=== PATIENT | female | born 1945 | race Caucasian/White ===

== ENCOUNTER 2016-12-15 17:12 | Inpatient (IN) | payer MEDICARE, MEDICAID ==
[2016-12-15 17:54] LABS: Hematocrit 30.8 % (37.0-47.0); Hemoglobin 9.8 gm/dL (12.5-16.0); Mean Cell Volume 92.5 fl (78-100); Mean Corpuscular Hemoglobin 29.4 pg (27-31); Mean Corpuscular Hgb Conc 31.8 g/dl (32-36); Mean Platelet Volume 8.5 fl (6.0-9.5); Platelet Count 289 K/mm3 (150-450); Red Blood Count 3.33 M/mm3 (4.2-5.4); Red Cell Distribution Width 13.5 % (11.5-14.0); White Blood Count 11.2 K/mm3 (4.0-10.5)
[2016-12-15 18:01] LABS: Total Cells Counted 100
--- NOTE | 2016-12-15 18:04 | ERNOTE ---
Dyspnea - General Presenting Symptoms: shortness of breath Time Seen by Provider: 12/15/16 17:58 Source: patient Exam Limitations: no limitations - Immun/Allergies/Home Medications Immunizations: IMMUNIZATION HX Immunizations Up to Date Yes History of Influenza Vaccine Yes Hx Pneumococcal Vaccination Yes Allergies/Adverse Reactions: Allergies telithromycin [From KETEK] Allergy (Mild, Verified 07/22/16 21:13) unknown amlodipine besylate [From Norvasc] Adverse Reaction (Mild, Verified 07/22/16 21: 13) does not work azithromycin [From Zithromax] Adverse Reaction (Mild, Verified 07/22/16 21:13) gastritis cephalexin Adverse Reaction (Mild, Verified 07/22/16 21:13) Diarrhea olopatadine HCl [From Patanase] Adverse Reaction (Mild, Verified 07/22/16 21:13) dry nose paroxetine HCl [From Paxil] Adverse Reaction (Mild, Verified 07/22/16 21:13) GI upset, diarrhea potassium clavulanate [From Augmentin] Adverse Reaction (Mild, Verified 21:13) Nausea tramadol Adverse Reaction (Mild, Verified 07/22/16 21:13) Nausea Home Medications: HOME MEDICATIONS ALPRAZolam [Xanax] 0.75 mg PO HS 12/28/14 [Last Taken 06/30/16] Multivitamin [Multi-Vitamin Daily] 1 each PO DAILY 12/28/14 [Last Taken Unknown] Levothyroxine Sodium [Synthroid] 50 mcg PO DAILY 04/14/15 [Last Taken Unknown] Losartan Potassium [Cozaar] 25 mg PO DAILY 06/19/16 [Last Taken Unknown] Albuterol Sulfate [Ventolin HFA] 1 puff IH PRN PRN 07/01/16 [Last Taken Unknown] Calcium Carbonate/Vitamin D3 [Calcium 500 + Vit D3 400 Tab] 1 tab PO DAILY 07/01 [Last Taken 06/30/16] Albuterol Sulfate/Ipratropium [Duoneb 2.5-0.5MG/3ML Soln] 3 ml IH Q4H #1 nebu [Last Taken Unknown] Budesonide/Formoterol Fumarate [Symbicort 160-4.5 Mcg Inhaler] 2 puff IH BID [Last Taken Unknown] Naproxen Sodium [Naproxen Sodium Cr] 500 mg PO BID 12/15/16 [Last Taken Unknown] - History of Present Illness Narrative: Patient has a history of COPD, is being followed by Dr Hamilton and has been on O2 for about three years. Over the last three days she has been more short of breath, slight cough, productive with yellow/brown sputum. She had an outpatient order for a CXR by Dr Hamilton but came to the ER afterwards as she was not feeling well. Date (Duration): 12/12/16 Severity: moderate Treatment KAIAKO KOHANGA REO: albuterol Initiating event: Reports: upper resp illness. Denies: out of meds, exposure to smoke Frequency of episodes: Reports: occassional episodes Modifying Factors - (Improves): Reports: rest Modifying Factors (Worsens): Reports: activity Associated Symptoms-Dyspnea: Reports: cough, lightheadedness. Denies: fever/ chills, sweating, chest pain/discomfort Prior Treatment: Reports: previous episodes. Denies: recently seen, currently on antibiotics Review of Systems - Review of Systems Constitutional: Absent: fever, chills ENT: Absent: nose congestion, sore throat Respiratory: Present: See HPI, shortness of breath, cough Cardiology: Absent: chest pain Gastrointestinal/Abdominal: Absent: nausea, vomiting, abdominal pain Genitourinary: Present: no symptoms reported Skin: Absent: rash Neurological: Absent: headache - Patient's Past Medical History Patient History - Medical: Anxiety, Depression, Hypothyroidism, Other Patient History - Cardiac/Respiratory: COPD, Pneumonia Patient History - Cancer: No Hx of Cancer Patient History - Surgical Procedures: Hysterectomy, T & A Patient History - Other: None LMP (females 10-50): Menopausal - Family History Mother Family History - Medical: , No pertinent hx Family History - Cardiac/Respiratory: CHF Father Family History - Medical: , No pertinent hx Family History - Cardiac/Respiratory: No pertinent hx - Social History Living Situations: home Abuse History: No History of abuse Psych History: Hx of Anxiety, Hx of Depression Smoking Status: Former smoker Have you smoked in the past 12 months: No Alcohol Use: none Drug Use: none - Immunizations Immunizations Up to Date: Yes Hx Pneumococcal Vaccination: Yes History of Influenza Vaccine: Yes Physical Exam - Physical Exam General Appearance: Present: wd/wn, alert, no apparent distress Eye Exam: Normal inspection: bilateral, PERRL: bilateral Ears, Nose, Throat: Present: normal pharynx Respiratory: Present: no accessory muscle use, decreased breath sounds, wheezing - few Cardiovascular/Chest: Present: no murmur, tachycardia - slightly Gastrointestinal/Abdominal: Present: nontender, nondistended, soft Extremity Exam: Present: no edema Neurological Exam: Present: alert, oriented, normal mood/affect Skin Exam: Present: normal color, warm/dry ED Progress - Results and Orders Patient's Lab Results:: I have reviewed the patient's lab results. - Vital Signs Patient's Vital Signs:: I have reviewed the patient's vital signs. Vital Signs: Vital Signs 12/15/16 17:25 Temperature 35.7 C L Pulse Rate 110 H Respiratory 20 Rate Blood Pressure 155/91 O2 Sat by Pulse 95 Oximetry - X-Ray X-Ray #1 X-Ray: chest - left sided infiltrate ( out patient CXR done prior to ER visit) Interpretation: Reviewed by me - Progress/Reassessment Chief Complaint: Dyspnea Progress Note-Subjective: 12/15/16 18:59 requesting neb treatment, does not want high dose steroids 12/15/16 19:00 discussed with harsh Whitehead to admit and give levaquin and maxipime ( pneumonia protocol, increased pseudomonas risk) analyser down, [place] and differential not available at that time Departure Clinical Impression: Pneumonia Qualifiers: Pneumonia type: due to unspecified organism Laterality: left Lung location: upper lobe of lung Qualified Code(s): J18.1 - Lobar pneumonia, unspecified organism COPD (chronic obstructive pulmonary disease) Qualifiers: COPD type: unspecified COPD Qualified Code(s): J44.9 - Chronic obstructive pulmonary disease, unspecified - Departure Disposition: [facility] Condition: Fair
[2016-12-15 18:22] LABS: Anion Gap 12.9 mmol/L (6.8-13.8); BUN/Creatinine Ratio 27.4 (9.0-21.6); Calcium * 8.9 mg/dL (7.9-10.9); Carbon Dioxide 29.7 mmol/L (24-32.6); Potassium 4.6 mmol/L (3.4-4.6); Total Protein 7.8 gm/dL (6.2-8.2)
[2016-12-15 18:23] LABS: Bilirubin, Total 0.4 mg/dL (0.0-1.1); Ca. Corrected For Albumin 9.4 mg/dL (8.4-10.2)
[2016-12-15] MEDS ORDERED: predniSONE 20 MG TABLET PO ONE (18:54)
[2016-12-15] MEDS ORDERED: ALBUTEROL SULFATE 2.5 MG/0.5 ML VIAL.NEB IH ONE ×2 (18:54→19:19)
[2016-12-15] MEDS ORDERED: LEVOFLOXACIN/D5W 500 MG/100 ML BAG IV SCH (19:00)
[2016-12-15 19:12] LABS: Eosinophil 3 % (0-3); Lymphocyte 6 % (20-51); Monocyte 9 % (0-9); Neutrophil 82 % (42-75); Neutrophil # 9.2 K/mm3 (1.3-6.0)
[2016-12-15 19:13] LABS: Hypochromia 1+
[2016-12-15 19:15] LABS: Platelet Estimate Normal (NORMAL)
[2016-12-15] MEDS ORDERED: CEFEPIME HCL 1 GM in DEXTROSE 5 % IN WATER 100 ML IV STA ×2 (19:19)
[2016-12-15] MEDS ORDERED: LEVOFLOXACIN/D5W 750 MG in Premix Bag 1 BAG IV STA (19:19)
[2016-12-15] MEDS ORDERED: predniSONE 20 MG TABLET ONE (19:19)
[2016-12-15] MEDS ORDERED: ALBUTEROL SULFATE/IPRATROPIUM 3 ML NEBU IH SCH (21:15)
--- NOTE | 2016-12-15 21:49 | HP ---
Chief Complaint - Chief Complaint Date of Service: 12/15/16 Time of Service: 21:24 Chief Complaint: Shortness of breath, cough History of Present Illness: 71 Years old female adm to the hospital with reports of persistent shortness of breath and non productive cough. PMH significant for COPD 3L nasal cannula, hypothyroidism and pneumonia. pt stated today she called her extrusion engineer and told him she was having increased Shortness of breath x4 days and cough up yellow-brown sputum. She was instructed to have out-pt CXR: Left upper lobe Pneumonia and was seen and pt was sent to the hospital. She denies fever, chills , chest pain, palpitation, but report sinus pressure, pursed lip breathing and wasn't able to ambulated without significant shortness of breath and mild headache. In ER WBC 11.2, she was initiated on IV antibiotic, lactic acid negative. She will be adm and treated for pneumonia. Anticipate 1-3 nights stay. - Patient's Past Medical History Patient History - Medical: Anxiety, Depression, Hypothyroidism, Other Patient History - Cardiac/Respiratory: COPD, Pneumonia Patient History - Cancer: No Hx of Cancer Patient History - Surgical Procedures: Hysterectomy, T & A Patient History - Other: None LMP (females 10-50): Menopausal - Family History Mother Family History - Medical: Family History - Cardiac/Respiratory: CHF Family History - Cancer: No pertinent family hx Father Family History - Medical: , No pertinent hx Family History - Cardiac/Respiratory: No pertinent hx Family History - Cancer: No pertinent family hx - Social History Living Situations: home Abuse History: No History of abuse Psych History: Hx of Anxiety, Hx of Depression Does anyone smoke in the home?: No Smoking Status: Former smoker - quit 11yrs ago Have you smoked in the past 12 months: No Do you dip or chew tobacco: No Patient requests Smoking Cessation Consult: No Initiate information on Smoking Cessation: No Alcohol Use: none Drug Use: none - Immunizations Immunizations Up to Date: Yes Hx Pneumococcal Vaccination: Yes History of Influenza Vaccine: Yes Review Of Systems (GEN) - Review of Systems Generalized/Overall Review: Present: No Symptoms Reported EENTM: Present: Nose Congestion Respiratory: Present: Cough, Shortness of Breath, Wheezing Cardiac: Present: No Symptoms Reported Abdominal: Present: No Symptoms Reported Genitourinary: Present: No Symptoms Reported Musculoskeletal: Present: No Symptoms Reported Neurological: Present: Headache Skin: Present: No Symptoms Reported Endocrine: Present: No Symptoms Reported Immunizations: IMMUNIZATION HX Immunizations Up to Date Yes History of Influenza Vaccine Yes Hx Pneumococcal Vaccination Yes Allergies/Adverse Reactions: Allergies Allergy/AdvReac Type Severity Reaction Status Date / Time telithromycin [From KETEK] Allergy Mild unknown Verified 07/22/16 21:13 amlodipine besylate AdvReac Mild does not Verified 07/22/16 21:13 [From Norvasc] work azithromycin [From Zithromax] AdvReac Mild gastritis Verified 07/22/16 21:13 cephalexin AdvReac Mild Diarrhea Verified 07/22/16 21:13 olopatadine HCl AdvReac Mild dry nose Verified 07/22/16 21:13 [From Patanase] paroxetine HCl [From Paxil] AdvReac Mild GI upset, Verified 07/22/16 21:13 diarrhea potassium clavulanate AdvReac Mild Nausea Verified 07/22/16 21:13 [From Augmentin] tramadol AdvReac Mild Nausea Verified 07/22/16 21:13 Home Medications: HOME MEDICATIONS ALPRAZolam [Xanax] 0.75 mg PO HS 12/28/14 [Last Taken 06/30/16] Multivitamin [Multi-Vitamin Daily] 1 each PO DAILY 12/28/14 [Last Taken Unknown] Levothyroxine Sodium [Synthroid] 50 mcg PO DAILY 04/14/15 [Last Taken Unknown] Losartan Potassium [Cozaar] 25 mg PO DAILY 06/19/16 [Last Taken Unknown] Albuterol Sulfate [Ventolin HFA] 1 puff IH PRN PRN 07/01/16 [Last Taken Unknown] Calcium Carbonate/Vitamin D3 [Calcium 500 + Vit D3 400 Tab] 1 tab PO DAILY 07/01 [Last Taken 06/30/16] Albuterol Sulfate/Ipratropium [Duoneb 2.5-0.5MG/3ML Soln] 3 ml IH Q4H #1 nebu [Last Taken Unknown] Budesonide/Formoterol Fumarate [Symbicort 160-4.5 Mcg Inhaler] 2 puff IH BID [Last Taken Unknown] Naproxen Sodium [Naproxen Sodium Cr] 500 mg PO BID 02/03/17 [Last Taken Unknown] Exam - Exam Vital Signs: Vital Signs - Last Taken Temp 36.4 C L 12/15/16 20:00 Pulse 118 H 12/15/16 20:00 Resp 24 H 12/15/16 20:00 BP 170/85 12/15/16 20:00 Pulse Ox 100 12/15/16 20:00 Constitutional: Present: Alert, Oriented x3, Cooperative, Well developed, Mild distress, Middle aged ENT Exam: Present: nasal congestion, moist mucous membranes Eye Exam: bilateral eye: PERRL Neck: Present: full range of motion Back Exam: Present: normal inspection, no CVA tenderness, no vertebral tenderness Breasts: Present: Exam deferred Respiratory: Present: chest non-tender, no accessory muscle use, decreased breath sounds, wheezing Cardiovascular/Chest: Present: normal peripheral pulses, no chest tenderness, no edema, no gallop, tachycardia Peripheral Pulses: dorsalis-pedis (R): 3+, dorsalis-pedis (L): 3+ Abdomen: Present: Normal bowel sounds, soft, nontender, nondistended /Rectal: Present: Exam deferred Extremity: Present: normal range of motion, non-tender, normal inspection, no pedal edema, no calf tenderness Skin Exam: Present: normal color, warm/dry, no cyanosis Lymphatic: Present: no adenopathy Neurologic: Present: oriented x 3 Appearance: Present: appropriate appearance Eye contact: Present: cooperative, good eye contact Thoughts: Present: normal thought pattern Diagnostic Studies: Laboratory Results WBC 11.2 K/mm3 (4.0-10.5) H 12/15/16 17:35 RBC 3.33 M/mm3 (4.2-5.4) L 12/15/16 17:35 Hgb 9.8 gm/dL (12.5-16.0) L 12/15/16 17:35 Hct 30.8 % (37.0-47.0) L 12/15/16 17:35 MCV 92.5 fl (78-100) 12/15/16 17:35 MCH 29.4 pg (27-31) 12/15/16 17:35 MCHC 31.8 g/dl (32-36) L 12/15/16 17:35 RDW 13.5 % (11.5-14.0) 12/15/16 17:35 Plt Count 289 K/mm3 (150-450) 12/15/16 17:35 MPV 8.5 fl (6.0-9.5) 12/15/16 17:35 Neutrophils % (Manual) 82 % (42-75) H 12/15/16 17:35 Lymphocytes % (Manual) 6 % (20-51) L 12/15/16 17:35 Monocytes % (Manual) 9 % (0-9) 12/15/16 17:35 Eosinophils % (Manual) 3 % (0-3) 12/15/16 17:35 Neutrophils # (Manual) 9.2 K/mm3 (1.3-6.0) H 12/15/16 17:35 Lymphocytes # (Manual) 0.7 k/mm3 (1.5-3.5) L 12/15/16 17:35 Monocytes # (Manual) 1.0 k/mm3 (0.0-1.0) 12/15/16 17:35 Eosinophils # (Manual) 0.3 k/mm3 (0.0-0.7) 12/15/16 17:35 Platelet Estimate Normal (NORMAL) 12/15/16 17:35 Hypochromasia 1+ 12/15/16 17:35 Sodium 134 mmol/L (132-142) 12/15/16 17:35 Plasma Sodium 134 mmol/L (130-142) 12/15/16 17:35 Potassium 4.6 mmol/L (3.4-4.6) 12/15/16 17:35 Chloride 96 mmol/L (97-106) L 12/15/16 17:35 Carbon Dioxide 29.7 mmol/L (24-32.6) 12/15/16 17:35 Anion Gap 12.9 mmol/L (6.8-13.8) 12/15/16 17:35 BUN 17 mg/dL (3-23) 12/15/16 17:35 Creatinine 0.62 mg/dL (0.4-1.4) 12/15/16 17:35 Est GFR (Non-Af Amer) 101 mL/min (60-130) 12/15/16 17:35 BUN/Creatinine Ratio 27.4 (9.0-21.6) H 12/15/16 17:35 Random Glucose 117 mg/dL (70-110) H 12/15/16 17:35 Lactic Acid, Venous 1.0 mmol/L (0.4-2.0) 12/15/16 19:03 Calcium 8.9 mg/dL (7.9-10.9) 12/15/16 17:35 Calcium Adj for Albumin 9.4 mg/dL (8.4-10.2) 12/15/16 17:35 Total Bilirubin 0.4 mg/dL (0.0-1.1) 12/15/16 17:35 AST 17 U/L (0-48) 12/15/16 17:35 ALT 15 U/L (19-67) L 12/15/16 17:35 Alkaline Phosphatase 89 U/L (50-170) 12/15/16 17:35 Total Protein 7.8 gm/dL (6.2-8.2) 12/15/16 17:35 Albumin 3.0 gm/dl (3.4-5.0) L 12/15/16 17:35 Assessment/Plan - Narrative Narrative: Pneumonia 12/15/16 CXR : left upper lobe pneumonia superimposed by chronic lung disease. Continue with IV antbx Levaquin 750mg Q24hr and Maxipime @12hrs Blood culture and sputum culture pending Encourage use of I/S On adm WBC 11.2 monitor CBC in am, pt remains afebrile COPD exacerbation in presence of pneumonia Plan same as #1 Supplemented oxygen, home oxygen use 3L nasal cannula Duoneb treatment scheduled and albuterol PRN Pt had prednisone 40mg x1 in ER, will continue solumedrol 40mg@8hrs. May resume home dose of symbicort Mucinex BID Hypothyroidism- stable Continue synthroid Hypertension On adm BP 170/85, pt stated she had taken her daily dose of medications May Resume home dose Losartan Give Hydralazine 5mg IV Q6 PRN for SBP >160 and DBP >80 VTE ppx SCD and encourage ambulating GI ppx: protonix. - Assessment/Plan (1) COPD (chronic obstructive pulmonary disease) Problem: Acute Qualifiers: COPD type: unspecified COPD Qualified Code(s): J44.9 - Chronic obstructive pulmonary disease, unspecified (2) Pneumonia Problem: Acute Qualifiers: Pneumonia type: due to unspecified organism Laterality: left Lung location: upper lobe of lung Qualified Code(s): J18.1 - Lobar pneumonia, unspecified organism (3) Dyspnea Problem: Chronic Qualifiers: (4) Hypertension Problem: Chronic Qualifiers: (5) Hypothyroidism Problem: Chronic Qualifiers:
[2016-12-15] MEDS ORDERED: ALBUTEROL SULFATE 60 PUFF INHALER IH PRN (22:05)
[2016-12-15] MEDS ORDERED: hydrALAZINE HCL 20 MG/ML VIAL IV PRN (22:08)
[2016-12-15] MEDS: ALPRAZolam 0.25 MG TABLET PO SCH (22:15)
[2016-12-15] MEDS: NAPROXEN 500 MG TABLET PO SCH (22:16)
[2016-12-15] MEDS: FLUTICASONE/SALMETEROL 14 PUFF DISK.W.DEV IH SCH (22:16)
[2016-12-15] MEDS: ACETAMINOPHEN 325 MG TABLET PO PRN (22:25)
[2016-12-15] MEDS: FLUTICASONE PROPIONATE 120 SPRAY INHALER NS SCH (22:27)
[2016-12-15] MEDS: ALBUTEROL SULFATE/IPRATROPIUM 3 ML NEBU IH SCH (22:43)
[2016-12-16] MEDS: METHYLPREDNISOLONE SOD SUCC 40 MG in WATER FOR INJ.,BACTERIOSTATIC 0 ML IV SCH ×3 (02:26→18:01)
[2016-12-16] MEDS: ALBUTEROL SULFATE/IPRATROPIUM 3 ML NEBU IH SCH ×7 (02:40→22:33)
[2016-12-16] MEDS: oxyCODONE HCL/ACETAMINOPHEN 1 TAB TABLET PO PRN ×3 (02:52→16:10)
[2016-12-16 05:02] LABS: Hematocrit 28.4 % (37.0-47.0); Hemoglobin 9.4 gm/dL (12.5-16.0); Mean Cell Volume 90.4 fl (78-100); Mean Corpuscular Hemoglobin 29.9 pg (27-31); Mean Corpuscular Hgb Conc 33.1 g/dl (32-36); Mean Platelet Volume 8.5 fl (6.0-9.5); Neutrophil % 93.6 % (42-75.0); Platelet Count 278 K/mm3 (150-450); Red Blood Count 3.14 M/mm3 (4.2-5.4); Red Cell Distribution Width 13.3 % (11.5-14.0); White Blood Count 8.5 K/mm3 (4.0-10.5)
[2016-12-16] MEDS: ACETAMINOPHEN 325 MG TABLET PO PRN (05:15)
[2016-12-16] MEDS ORDERED: guaiFENesin 100 MG/5 ML BTL PO PRN (05:33)
--- NOTE | 2016-12-16 05:39 | PN ---
Subjective - Date and Time Seen Date: 12/16/16 Time: 05:34 Subjective Narrative: patient seen today in bed AOX3 no acute distress, she denies shortness of breath with exertion when she walked to the bathroom. Nasal congestion is feeling better but she prefer to use Robitussin vs Mucinex. K- pad to be used for chronic back pain. She was bale to cough up yellow-brown mucus overnight and this morning. Objective - Review of Systems Generalized/Overall Review: Reports: No Symptoms Reported EENTM: Reports: No Symptoms Reported Respiratory: Reports: Cough, Shortness of Breath, Wheezing Cardiac: Reports: No Symptoms Reported Abdominal: Reports: No Symptoms Reported Genitourinary Symptoms: Reports: No Symptoms Reported Musculoskeletal Complaints: Reports: Back Pain Neurological: Reports: No Symptoms Reported Skin: Reports: No Symptoms Reported Endocrine: Reports: No Symptoms Reported - Vitals Vitals: Last Vital Signs Temp 36.9 C 12/16/16 02:37 Pulse 106 H 12/16/16 03:02 Resp 20 12/16/16 02:50 BP 158/82 12/16/16 03:02 Pulse Ox 96 12/16/16 02:40 - Abnormal Lab Findings Abnormal Lab Findings: Abnormal Lab Results 12/16/16 Range/Units 04:56 RBC 3.14 L (4.2-5.4) M/mm3 Hgb 9.4 L (12.5-16.0) gm/dL Hct 28.4 L (37.0-47.0) % Immature Gran % (Auto) 0.60 H (0.001-0.429) % Immature Gran # (Auto) 0.05 H (0.000-0.0310) K/mm3 Neutrophils % 93.6 H (42-75.0) % Lymphocytes % 3.9 L (20-51) % Neutrophils # 8.0 H (1.3-6.0) K/mm3 Lymphocytes # 0.3 L (1.5-3.5) k/mm3 - Exam Constitutional: Present: Alert, Oriented x3, Cooperative, Well developed, No distress, Middle aged ENT Exam: Present: nasal congestion, moist mucous membranes Neck: Present: full range of motion Respiratory: Present: chest non-tender, normal breath sounds, no respiratory distress, no accessory muscle use, decreased breath sounds, wheezing Cardiovascular/Chest: Present: normal peripheral pulses, regular rate, rhythm, no chest tenderness, tachycardia Abdomen: Present: Normal bowel sounds, nontender, nondistended, no rebound tenderness /Rectal: Present: Exam deferred Extremity: Present: normal range of motion, non-tender, normal inspection, no pedal edema, no calf tenderness Skin Exam: Present: normal color, warm/dry Neurologic: Present: oriented x 3 Appearance: Present: appropriate appearance Eye contact: Present: good eye contact Thoughts: Present: normal thought pattern Assessment/Plan Plan Narrative: Pneumonia 12/15/16 CXR : left upper lobe pneumonia superimposed by chronic lung disease. Continue with IV antbx Levaquin 750mg Q24hr and Maxipime Q12hrs Blood culture and sputum culture pending Encourage use of I/S On adm WBC 11.2 ---->8.5 WNL Pt remain afebrile overnight COPD exacerbation in presence of pneumonia Plan same as #1 Supplemented oxygen humidified air, home oxygen use 3L nasal cannula Duoneb treatment scheduled and albuterol PRN Pt had prednisone 40mg x1 in ER, will continue solumedrol 40mg@8hrs. May resume home dose of symbicort Robitussin and Flonase. Hypothyroidism- stable Continue synthroid Hypertension On adm BP 170/85---->158/82 May Resume home dose Losartan Give Hydralazine 5mg IV Q6 PRN for SBP >160 and DBP >80 Monitor VS Q shift and PRN. VTE ppx SCD and encourage ambulating GI ppx: protonix. - Problems/Diagnosis (1) COPD (chronic obstructive pulmonary disease) Problem: Acute Qualifiers: COPD type: unspecified COPD Qualified Code(s): J44.9 - Chronic obstructive pulmonary disease, unspecified (2) Pneumonia Problem: Acute Qualifiers: Pneumonia type: due to unspecified organism Laterality: left Lung location: upper lobe of lung Qualified Code(s): J18.1 - Lobar pneumonia, unspecified organism (3) Dyspnea Problem: Chronic Qualifiers: (4) Hypertension Problem: Chronic Qualifiers: (5) Hypothyroidism Problem: Chronic Qualifiers:
[2016-12-16] MEDS: LEVOTHYROXINE SODIUM 50 MCG TABLET PO SCH (07:57)
[2016-12-16] MEDS: CEFEPIME HCL 1 GM in DEXTROSE 5 % IN WATER 100 ML IV SCH ×4 (08:16→19:35)
[2016-12-16] MEDS: FLUTICASONE/SALMETEROL 14 PUFF DISK.W.DEV IH SCH ×2 (09:13→20:43)
[2016-12-16] MEDS: LOSARTAN POTASSIUM 50 MG TABLET PO SCH (09:14)
[2016-12-16] MEDS: FAMOTIDINE 20 MG TABLET PO SCH (09:14)
[2016-12-16] MEDS: NAPROXEN 500 MG TABLET PO SCH ×2 (09:14→20:44)
[2016-12-16] MEDS: MULTIVITAMINS 1 CAP CAPSULE PO SCH (09:14)
[2016-12-16] MEDS: CALCIUM CARBONATE/VITAMIN D3 1 TAB TABLET PO SCH (09:14)
[2016-12-16] MEDS: FLUTICASONE PROPIONATE 120 SPRAY INHALER NS SCH (09:17)
[2016-12-16] MEDS ORDERED: oxyCODONE HCL 5 MG TABLET PO PRN (11:18)
[2016-12-16] MEDS: ALBUTEROL SULFATE 2.5 MG/0.5 ML VIAL.NEB IH PRN ×2 (11:43→14:25)
[2016-12-16] MEDS: LIDOCAINE 1 PATCH ADH..PATCH TP SCH (14:47)
[2016-12-16] MEDS: ENOXAPARIN SODIUM 40 MG/0.4 ML SYRG SC SCH (14:47)
[2016-12-16] MEDS ORDERED: LEVOFLOXACIN/D5W 750 MG in Premix Bag 1 BAG IV SCH (19:20)
[2016-12-16] MEDS ORDERED: MAG HYDROX/ALUMINUM HYD/SIMETH 30 ML UDC PO PRN (20:33)
[2016-12-16] MEDS ORDERED: ALPRAZolam 0.25 MG TABLET PO SCH (21:00)
[2016-12-16] MEDS: ALPRAZolam 0.25 MG TABLET PO SCH (21:59)
[2016-12-17] MEDS: ACETAMINOPHEN 325 MG TABLET PO PRN ×4 (00:06→19:11)
[2016-12-17] MEDS: METHYLPREDNISOLONE SOD SUCC 40 MG in WATER FOR INJ.,BACTERIOSTATIC 0 ML IV SCH ×2 (02:07→12:49)
[2016-12-17] MEDS: ALBUTEROL SULFATE/IPRATROPIUM 3 ML NEBU IH SCH ×7 (03:05→22:06)
[2016-12-17] MEDS: ALBUTEROL SULFATE 2.5 MG/0.5 ML VIAL.NEB IH PRN ×3 (04:16→19:50)
[2016-12-17 05:13] LABS: Hematocrit 26.9 % (37.0-47.0); Hemoglobin 8.7 gm/dL (12.5-16.0); Mean Cell Volume 92.4 fl (78-100); Mean Corpuscular Hemoglobin 29.9 pg (27-31); Mean Corpuscular Hgb Conc 32.3 g/dl (32-36); Mean Platelet Volume 8.7 fl (6.0-9.5); Neutrophil # 9.6 K/mm3 (1.3-6.0); Neutrophil % 86.6 % (42-75.0); Platelet Count 321 K/mm3 (150-450); Red Blood Count 2.91 M/mm3 (4.2-5.4); Red Cell Distribution Width 13.6 % (11.5-14.0); White Blood Count 11.1 K/mm3 (4.0-10.5)
[2016-12-17 05:23] LABS: BUN/Creatinine Ratio 26.9 (9.0-21.6); Calcium * 8.8 mg/dL (7.9-10.9); Carbon Dioxide 28.8 mmol/L (24-32.6); Estimated Creat Clear 59.8; Potassium 4.8 mmol/L (3.4-4.6)
--- NOTE | 2016-12-17 06:05 | PN ---
Subjective - Date and Time Seen Date: 12/17/16 Time: 05:53 Subjective Narrative: Patient seen in bed no acute distress, pt stated feels much better today than she did yesterday. she is able to walk to bathroom without shortness of breath on exertion. chronic back pain is better with use of K-pad. Objective - Review of Systems Generalized/Overall Review: Reports: No Symptoms Reported EENTM: Reports: No Symptoms Reported Respiratory: Reports: Cough Cardiac: Reports: No Symptoms Reported Abdominal: Reports: No Symptoms Reported Genitourinary Symptoms: Reports: No Symptoms Reported Musculoskeletal Complaints: Reports: No Symptoms Reported Neurological: Reports: No Symptoms Reported Skin: Reports: No Symptoms Reported - Vitals Vitals: Last Vital Signs Temp 37.1 C 12/17/16 03:00 Pulse 98 12/17/16 04:24 Resp 20 12/17/16 04:24 BP 112/72 12/17/16 03:00 Pulse Ox 94 12/17/16 04:16 - Abnormal Lab Findings Abnormal Lab Findings: Abnormal Lab Results 12/17/16 12/17/16 Range/Units 05:00 05:00 WBC 11.1 H D (4.0-10.5) K/mm3 RBC 2.91 L (4.2-5.4) M/mm3 Hgb 8.7 L (12.5-16.0) gm/dL Hct 26.9 L (37.0-47.0) % Immature Gran % (Auto) 1.00 H (0.001-0.429) % Immature Gran # (Auto) 0.11 H (0.000-0.0310) K/mm3 Neutrophils % 86.6 H (42-75.0) % Lymphocytes % 5.7 L (20-51) % Neutrophils # 9.6 H (1.3-6.0) K/mm3 Lymphocytes # 0.6 L (1.5-3.5) k/mm3 Potassium 4.8 H (3.4-4.6) mmol/L Chloride 96 L (97-106) mmol/L BUN/Creatinine Ratio 26.9 H (9.0-21.6) Random Glucose 132 H (70-110) mg/dL - Exam Constitutional: Present: Alert, Oriented x3, Cooperative, Well developed, No distress, Middle aged ENT Exam: Present: moist mucous membranes Neck: Present: full range of motion Breasts: Present: Exam deferred Respiratory: Present: chest non-tender, no respiratory distress, no accessory muscle use, decreased breath sounds, wheezing Cardiovascular/Chest: Present: normal peripheral pulses, regular rate, rhythm, no chest tenderness, no edema, no gallop, no JVD Abdomen: Present: Normal bowel sounds, soft, nontender, nondistended, no rebound tenderness /Rectal: Present: Exam deferred Extremity: Present: normal range of motion, non-tender, normal inspection, no pedal edema, no calf tenderness Skin Exam: Present: normal color, warm/dry, no cyanosis Neurologic: Present: oriented x 3 Appearance: Present: appropriate insight Eye contact: Present: cooperative Thoughts: Present: normal thought pattern, no apparent hallucination Assessment/Plan Plan Narrative: COPD exacerbation in presence of pneumonia Plan same as #1 Supplemented oxygen humidified air, home oxygen use 3L nasal cannula Duoneb treatment scheduled and albuterol PRN Pt had prednisone 40mg x1 in ER, will continue solumedrol 40mg@8hrs. Continue with advair. Robitussin and Flonase. Rinse mouth after treatments and encourage oral intake Pneumonia 12/15/16 CXR : left upper lobe pneumonia superimposed by chronic lung disease. Continue with IV antbx Levaquin 750mg Q24hr and Maxipime Q12hrs Blood culture and sputum no growth Encourage use of I/S On adm WBC 11.2 ---->8.5---->11.1 likely due to steriod use. Pt remain afebrile overnight Hyperkalemia-slightly elevated Monitor Potassium at noon Hypothyroidism- stable Continue synthroid Hypertension- stable BP 112/72 May Resume home dose Losartan Give Hydralazine 5mg IV Q6 PRN for SBP >160 and DBP >80 Monitor VS Q shift and PRN. VTE ppx SCD/ Lovenox Q24hr and encourage ambulating GI ppx: protonix. Code Status Translation Director 15 minutes - Problems/Diagnosis (1) COPD (chronic obstructive pulmonary disease) Problem: Acute Qualifiers: COPD type: unspecified COPD Qualified Code(s): J44.9 - Chronic obstructive pulmonary disease, unspecified (2) Pneumonia Problem: Acute Qualifiers: Pneumonia type: due to unspecified organism Laterality: left Lung location: upper lobe of lung Qualified Code(s): J18.1 - Lobar pneumonia, unspecified organism (3) Dyspnea Problem: Chronic Qualifiers: (4) Hypertension Problem: Chronic Qualifiers: (5) Hypothyroidism Problem: Chronic Qualifiers:
[2016-12-17] MEDS: LEVOTHYROXINE SODIUM 50 MCG TABLET PO SCH (08:29)
[2016-12-17] MEDS: CALCIUM CARBONATE/VITAMIN D3 1 TAB TABLET PO SCH (09:37)
[2016-12-17] MEDS: LOSARTAN POTASSIUM 50 MG TABLET PO SCH (09:37)
[2016-12-17] MEDS: FAMOTIDINE 20 MG TABLET PO SCH (09:37)
[2016-12-17] MEDS: MULTIVITAMINS 1 CAP CAPSULE PO SCH (09:37)
[2016-12-17] MEDS: NAPROXEN 500 MG TABLET PO SCH ×2 (09:37→21:02)
[2016-12-17] MEDS: FLUTICASONE PROPIONATE 120 SPRAY INHALER NS SCH (09:38)
[2016-12-17] MEDS: FLUTICASONE/SALMETEROL 14 PUFF DISK.W.DEV IH SCH ×3 (09:40→21:10)
[2016-12-17] MEDS: LIDOCAINE 1 PATCH ADH..PATCH TP SCH (09:51)
[2016-12-17] MEDS: CEFEPIME HCL 1 GM in DEXTROSE 5 % IN WATER 100 ML IV SCH ×2 (09:54)
[2016-12-17] MEDS: predniSONE 20 MG TABLET PO SCH (12:54)
[2016-12-17] MEDS: ENOXAPARIN SODIUM 40 MG/0.4 ML SYRG SC SCH (15:04)
[2016-12-17] MEDS ORDERED: ACETYLCYSTEINE 200 MG/ML VIAL IH SCH (19:30)
[2016-12-17] MEDS: ALPRAZolam 0.25 MG TABLET PO SCH (21:08)
[2016-12-18] MEDS: ALBUTEROL SULFATE/IPRATROPIUM 3 ML NEBU IH SCH ×2 (03:40→07:10)
[2016-12-18 05:39] LABS: Hematocrit 30.4 % (37.0-47.0); Hemoglobin 9.9 gm/dL (12.5-16.0); Mean Cell Volume 91.8 fl (78-100); Mean Corpuscular Hemoglobin 29.9 pg (27-31); Mean Corpuscular Hgb Conc 32.6 g/dl (32-36); Mean Platelet Volume 8.5 fl (6.0-9.5); Neutrophil # 9.6 K/mm3 (1.3-6.0); Neutrophil % 78.8 % (42-75.0); Platelet Count 418 K/mm3 (150-450); Red Blood Count 3.31 M/mm3 (4.2-5.4); Red Cell Distribution Width 13.9 % (11.5-14.0); White Blood Count 12.2 K/mm3 (4.0-10.5)
[2016-12-18 05:47] LABS: Anion Gap 8.7 mmol/L (6.8-13.8); BUN/Creatinine Ratio 28.1 (9.0-21.6); Calcium * 9.6 mg/dL (7.9-10.9); Carbon Dioxide 36.4 mmol/L (24-32.6); Estimated Creat Clear 62.6; Potassium 4.1 mmol/L (3.4-4.6)
--- NOTE | 2016-12-18 06:47 | DS ---
(1) Pneumonia Problem: Acute Qualifiers: Pneumonia type: due to unspecified organism Laterality: left Lung location: upper lobe of lung Qualified Code(s): J18.1 - Lobar pneumonia, unspecified organism (2) Acute exacerbation of chronic obstructive pulmonary disease (COPD) Problem: Acute (3) CHF (congestive heart failure) Problem: Chronic Qualifiers: Congestive heart failure type: unspecified congestive heart failure type Congestive heart failure chronicity: acute on chronic Qualified Code(s): I50.9 - Heart failure, unspecified (4) Anxiety Problem: Chronic (5) Hypertension Problem: Chronic Qualifiers: (6) Hypothyroidism Problem: Chronic Qualifiers: (7) Rheumatoid arthritis Problem: Chronic Qualifiers: Rheumatoid arthritis location: unspecified site Rheumatoid factor presence : unspecified presence Qualified Code(s): M06.9 - Rheumatoid arthritis, unspecified Description of Stay: 71 Years old female adm to the hospital on 12.15.16 with AECOPD secondary to LLL PNA, she was treated with steroids, breathing treatments and PO levaquin. PMH significant for COPD for which she is chronically on 3L nasal cannula, HTN, RA, hypothyroidism and pneumonia. SOB has improved, pt continues to have occasional scattered expiratory wheezing, she will continue Symbicort and albuterol breathing treatments at home PRN. She was educated about PN, the length of recovery time as well as importance to continue to take steroids and antibiotics as prescribed at home. She will follow up with Dr. Penaloza in one week. Procedures Performed: none Discharge Disposition: Home self care Disposition: Home self-care Condition: Fair Discharge Activity: Activity as tolerated Discharge Diet: Resume usual diet Referrals: Victoria Penaloza DO [Staff Physician] - One Week Problem Oriented Discharge Instructions to Patient/Family: Community-Acquired Pneumonia, Adult, [id number] Additional Patient Instructions (free text): [facility] on going please call and fax discharge information to them. Prescriptions (Any new or edited meds): Levofloxacin [Levaquin] 750 mg PO DAILY@1100 #5 tablet predniSONE [Prednisone] 40 mg PO DAILY #3 tablet Complete Home Medications List: Complete Home Medication List: ALPRAZolam [Xanax] 0.75 mg PO HS 12/28/14 Multivitamin [Multi-Vitamin Daily] 1 each PO DAILY 12/28/14 Levothyroxine Sodium [Synthroid] 50 mcg PO DAILY 04/14/15 Losartan Potassium [Cozaar] 25 mg PO DAILY 06/19/16 Albuterol Sulfate [Ventolin HFA] 1 puff IH PRN PRN 07/01/16 Calcium Carbonate/Vitamin D3 [Calcium 500 + Vit D3 400 Tab] 1 tab PO DAILY 07/01 Albuterol Sulfate/Ipratropium [Duoneb 2.5-0.5MG/3ML Soln] 3 ml IH Q4H #1 nebu Budesonide/Formoterol Fumarate [Symbicort 160-4.5 Mcg Inhaler] 2 puff IH BID Naproxen Sodium [Naproxen Sodium Cr] 500 mg PO BID 12/15/16 Levofloxacin [Levaquin] 750 mg PO DAILY@1100 #5 tablet 12/18/16 predniSONE [Prednisone] 40 mg PO DAILY #3 tablet 12/18/16
[2016-12-18] MEDS: LEVOTHYROXINE SODIUM 50 MCG TABLET PO SCH (07:40)
[2016-12-18] MEDS: LOSARTAN POTASSIUM 50 MG TABLET PO SCH ×2 (07:42→09:03)
[2016-12-18] MEDS: CALCIUM CARBONATE/VITAMIN D3 1 TAB TABLET PO SCH ×2 (07:42→09:03)
[2016-12-18] MEDS: NAPROXEN 500 MG TABLET PO SCH ×2 (07:43→09:04)
[2016-12-18] MEDS: MULTIVITAMINS 1 CAP CAPSULE PO SCH ×2 (07:43→09:04)
[2016-12-18] MEDS: FAMOTIDINE 20 MG TABLET PO SCH ×2 (07:43→09:04)
[2016-12-18 07:45] VITALS: BP 160/89
[2016-12-18] MEDS: FLUTICASONE PROPIONATE 120 SPRAY INHALER NS SCH ×2 (07:48→09:03)
[2016-12-18] MEDS: FLUTICASONE/SALMETEROL 14 PUFF DISK.W.DEV IH SCH (09:05)
[2016-12-18] MEDS: LIDOCAINE 1 PATCH ADH..PATCH TP SCH (09:05)
[2016-12-18] MEDS: predniSONE 20 MG TABLET PO SCH (09:12)
[2016-12-18] MEDS ORDERED: LEVOFLOXACIN 750 MG TABLET PO SCH (11:00)
== END 2016-12-18 10:25 | disposition home or self-care (01) | DRG 190 ==
LOC: ER 17:12 → MS 19:10
PROVIDERS: ADMIT Internal Medicine; ATTEND Internal Medicine
DX: J44.1 Chronic obstructive pulmonary disease with (acute) exacerbation (principal); J18.1 Lobar pneumonia, unspecified organism; I50.9 Heart failure, unspecified; I10 Essential (primary) hypertension; E03.9 Hypothyroidism, unspecified; M06.9 Rheumatoid arthritis, unspecified; Z99.81 Dependence on supplemental oxygen; Z87.891 Personal history of nicotine dependence

== ENCOUNTER 2017-10-20 16:33 | Observation (INO) | payer MEDICARE, MEDICAID ==
[2017-10-20] MEDS ORDERED: METHYLPREDNISOLONE SOD SUCC/PF 40 MG/ML VIAL IV ONE ×2 (17:04→17:13)
[2017-10-20] MEDS ORDERED: ALBUTEROL SULFATE/IPRATROPIUM 3 ML NEBU IH ONE ×2 (17:04→17:11)
[2017-10-20] MEDS ORDERED: METHYLPREDNISOLONE SOD SUCC/PF 40 MG/ML VIAL ONE (17:11)
[2017-10-20 17:19] LABS: Hematocrit 35.9 % (37.0-47.0); Hemoglobin 12.1 gm/dL (12.5-16.0); Mean Corpuscular Hemoglobin 31.7 pg (27-31); Mean Corpuscular Hgb Conc 33.7 g/dl (32-36); Mean Platelet Volume 8.7 fl (6.0-9.5); Neutrophil # 5.9 K/mm3 (1.3-6.0); Neutrophil % 90.5 % (42-75.0); Platelet Count 273 K/mm3 (150-450); Red Blood Count 3.82 M/mm3 (4.2-5.4); Red Cell Distribution Width 12.3 % (11.5-14.0); White Blood Count 6.5 K/mm3 (4.0-10.5)
[2017-10-20 17:36] LABS: Troponin I Less than 0.017 ng/ml (0.00-0.10)
[2017-10-20 17:38] LABS: ALT 21 U/L (19-67); AST 22 U/L (0-48); Alkaline Phosphatase * 58 U/L (50-170); Anion Gap 11.9 mmol/L (6.8-13.8); BNP * 214 pg/mL (5-325); BUN/Creatinine Ratio 23.4 (9.0-21.6); Bilirubin, Total 0.2 mg/dL (0.0-1.1); Blood Urea Nitrogen 18 mg/dL (3-23); Ca. Corrected For Albumin 8.9 mg/dL (8.4-10.2); Calcium * 9.2 mg/dL (7.9-10.9); Carbon Dioxide 29.7 mmol/L (24-32.6); Chloride 97 mmol/L (97-106); Glucose * 145 mg/dL (70-110); Potassium 4.6 mmol/L (3.4-4.6); Sodium 134 mmol/L (132-142); Total Protein 8.4 gm/dL (6.2-8.2)
[2017-10-20] MEDS ORDERED: LEVOFLOXACIN/D5W 500 MG/100 ML BAG IV SCH (18:00)
--- NOTE | 2017-10-20 18:38 | ERNOTE ---
Dyspnea - Date Date of Service: 10/20/17 - General Presenting Symptoms: shortness of breath Time Seen by Provider: 10/20/17 16:41 Source: patient Exam Limitations: no limitations - Immun/Allergies/Home Medications Immunizations: IMMUNIZATION HX Immunizations Up to Date Yes History of Influenza Vaccine Yes Hx Pneumococcal Vaccination Yes Allergies/Adverse Reactions: Allergies telithromycin [From KETEK] Allergy (Mild, Verified 10/20/17 17:44) unknown amlodipine besylate [From Norvasc] Adverse Reaction (Mild, Verified 10/20/17 17: 44) does not work azithromycin [From Zithromax] Adverse Reaction (Mild, Verified 10/20/17 17:44) gastritis cephalexin Adverse Reaction (Mild, Verified 10/20/17 17:44) Diarrhea olopatadine HCl [From Patanase] Adverse Reaction (Mild, Verified 10/20/17 17:44) dry nose paroxetine HCl [From Paxil] Adverse Reaction (Mild, Verified 10/20/17 17:44) GI upset, diarrhea potassium clavulanate [From Augmentin] Adverse Reaction (Mild, Verified 17:44) Nausea sulfamethoxazole [From Bactrim] Adverse Reaction (Mild, Verified 10/20/17 17:44) Other tramadol Adverse Reaction (Mild, Verified 10/20/17 17:44) Nausea trimethoprim [From Bactrim] Adverse Reaction (Mild, Verified 10/20/17 17:44) Other Home Medications: HOME MEDICATIONS ALPRAZolam [Xanax] 0.25 mg PO HS 12/28/14 [Last Taken 06/30/16] Multivitamin [Multi-Vitamin Daily] 1 each PO DAILY 12/28/14 [Last Taken Unknown] Levothyroxine Sodium [Synthroid] 25 mcg PO DAILY 04/14/15 [Last Taken Unknown] Losartan Potassium [Cozaar] 25 mg PO DAILY 06/19/16 [Last Taken Unknown] Albuterol Sulfate [Ventolin HFA] 1 puff IH PRN PRN 07/01/16 [Last Taken Unknown] Calcium Carbonate/Vitamin D3 [Calcium 500-Vit D3 400 Tablet] 1 tab PO DAILY [Last Taken 06/30/16] Albuterol Sulfate/Ipratropium [Duoneb 2.5-0.5MG/3ML Soln] 3 ml IH Q4H #1 nebu [Last Taken Unknown] Budesonide/Formoterol Fumarate [Symbicort 160-4.5 Mcg Inhaler] 2 puff IH BID [Last Taken Unknown] Albuterol Sulfate [Ventolin HFA] 1 puff IH Q6H 10/20/17 [Last Taken Unknown] Alendronate Sodium [Fosamax] 70 mg PO DAILY 10/20/17 [Last Taken Unknown] Carbamide Peroxide [Debrox] 5 drop OT TID 10/20/17 [Last Taken Unknown] Hydrochlorothiazide 12.5 mg PO DAILY 10/20/17 [Last Taken Unknown] Ipratropium/Albuterol Sulfate [Iprat-Albut 0.5-3(2.5) mg/3 ml] 3 ml IH QID 10/20 [Last Taken Unknown] Nystatin/Triamcin [Nystatin-Triamcinolone Cream] 15 gm TP BID 10/20/17 [Last Taken Unknown] Omeprazole 40 mg PO PRN 10/20/17 [Last Taken Unknown] - History of Present Illness Narrative: Patient presents to the ED for increased SOB and trouble breathing. She has been having nasal congestion and has subsequently developed cough and increased trouble breathing. Started home steroid today with 20mg PO. Cough has been noted although not bringing much up. No clear fever. No CP. No new leg swelling. Has not seen anyone else for this. Needed to increase her home O2 for this. 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 Denies: fever/chills, chest pain/ discomfort Prior Treatment: Denies: recently hospitalized Review of Systems - Review of Systems Constitutional: Absent: fever Respiratory: Present: shortness of breath Cardiology: Absent: chest pain Gastrointestinal/Abdominal: Absent: abdominal pain Genitourinary: Absent: dysuria All Other Systems: All systems neg except as marked - Patient's Past Medical History Patient History - Medical: Anxiety, Depression, Hypothyroidism, Other Patient History - Cardiac/Respiratory: COPD, Pneumonia Patient History - Cancer: No Hx of Cancer Patient History - Surgical Procedures: Hysterectomy, T & A Patient History - Other: None LMP (females 10-50): Menopausal - Family History Mother Family History - Medical: Family History - Cardiac/Respiratory: CHF Family History - Cancer: No pertinent family hx Father Family History - Medical: , No pertinent hx Family History - Cardiac/Respiratory: No pertinent hx Family History - Cancer: No pertinent family hx - Social History Living Situations: home Abuse History: No History of abuse Psych History: Hx of Anxiety, Hx of Depression Smoking Status: Former smoker Have you smoked in the past 12 months: No Alcohol Use: none Drug Use: none - Immunizations Immunizations Up to Date: Yes Hx Pneumococcal Vaccination: Yes History of Influenza Vaccine: Yes Physical Exam - Physical Exam General Appearance: Present: alert, thin Head Exam: Present: normal inspection, no evidence of injury Eye Exam: Normal inspection: bilateral, PERRL: bilateral Ears, Nose, Throat: Present: normal ENT inspection Neck: Present: normal inspection Respiratory: Present: other - mild tachypnea, scattered wheezes.. Absent: stridor Cardiovascular/Chest: Present: normal peripheral pulses, tachycardia Gastrointestinal/Abdominal: Present: normal bowel sounds, nontender, nondistended, soft Back Exam: Present: normal range of motion Extremity Exam: Present: normal inspection Neurological Exam: Present: alert, normal mood/affect, no motor/sensory deficits Skin Exam: Present: normal color, warm/dry ED Progress - Results and Orders Patient's Lab Results:: I have reviewed the patient's lab results. - Vital Signs Patient's Vital Signs:: I have reviewed the patient's vital signs. Vital Signs: Vital Signs 10/20/17 10/20/17 10/20/17 16:35 16:56 17:11 Temperature 36.3 C L Pulse Rate 110 H 104 H 107 H Respiratory 22 H 19 27 H Rate Blood Pressure 140/99 O2 Sat by Pulse 93 93 94 Oximetry 10/20/17 10/20/17 10/20/17 17:15 17:25 17:38 Temperature Pulse Rate 111 H 107 H 107 H Respiratory 29 H 25 H Rate Blood Pressure O2 Sat by Pulse 93 93 Oximetry 10/20/17 18:28 Temperature Pulse Rate 105 H Respiratory 25 H Rate Blood Pressure 159/82 O2 Sat by Pulse 95 Oximetry - EKG EKG read: Interp. by me EKG Comments: Sinus tachycardia, PVCs. Non-specific ST/T wave changes, no STEMI - X-Ray X-Ray #1 X-Ray: chest Interpretation: Interp. by me X-ray Comments: No real time radiology reads. RLL infiltrate by my interpretation - Progress/Reassessment Chief Complaint: Dyspnea Progress Note-Subjective: 10/20/17 18:37 IV steroids given, IV ABx and Neb. Patient felt too SOB to go home. Will discuss with admitting doctor for admission. Departure Clinical Impression: SOB (shortness of breath), Pneumonia - Departure Disposition: [facility] Condition: Stable
--- NOTE | 2017-10-20 20:15 | HP ---
Chief Complaint - Chief Complaint Date of Service: 10/20/17 Time of Service: 19:56 Chief Complaint: Shortness of breath, cough History of Present Illness: 72 years old female adm to the hospital from home. pt stated she has been having excessive shortness of breath x1 week. She was self medicating at home for sinusitis before experiencing the excessive shortness of breath. Despite nebulizer treatment, increased of her home oxygen. pt was unable to recover from the shortness of breath and felt she was getting worst so she came to the ER. PMH significant for End stage COPD, pneumonia,hypothyroidism,hypertension, prolapse bowel and Raynauds disease. In ER CXR: Right lower lobe pneumonia, she was initiated on Levaquin, neb treatment and IV steroids. Plan of care discussed with pt she verbalized understanding and agree. - Patient's Past Medical History Patient History - Medical: Anxiety, Depression, Hypothyroidism, Other - Raynauds disease Patient History - Cardiac/Respiratory: COPD, Pneumonia, Home O2 Use Patient History - Cancer: No Hx of Cancer Patient History - Surgical Procedures: Hysterectomy, T & A Patient History - Other: None LMP (females 10-50): Menopausal - Family History Mother Family History - Medical: Family History - Cardiac/Respiratory: CHF Family History - Cancer: No pertinent family hx Father Family History - Medical: , No pertinent hx Family History - Cardiac/Respiratory: No pertinent hx Family History - Cancer: No pertinent family hx - Social History Living Situations: alone Abuse History: No History of abuse Psych History: Hx of Anxiety, Hx of Depression Smoking Status: Former smoker Have you smoked in the past 12 months: No Do you dip or chew tobacco: No Alcohol Use: none Drug Use: none - Immunizations Immunizations Up to Date: Yes Hx Pneumococcal Vaccination: Yes History of Influenza Vaccine: Yes Review Of Systems (GEN) - Review of Systems Generalized/Overall Review: Present: No Symptoms Reported EENTM: Present: No Symptoms Reported Respiratory: Present: Cough, Shortness of Breath Cardiac: Present: No Symptoms Reported Abdominal: Present: No Symptoms Reported Genitourinary: Present: No Symptoms Reported Musculoskeletal: Present: No Symptoms Reported Neurological: Present: No Symptoms Reported Skin: Present: No Symptoms Reported Endocrine: Present: No Symptoms Reported Immunizations: IMMUNIZATION HX Immunizations Up to Date Yes History of Influenza Vaccine Yes Hx Pneumococcal Vaccination Yes Allergies/Adverse Reactions: Allergies Allergy/AdvReac Type Severity Reaction Status Date / Time telithromycin [From KETEK] Allergy Mild unknown Verified 10/20/17 17:44 amlodipine besylate AdvReac Mild does not Verified 10/20/17 17:44 [From Norvas] work azithromycin [From Zithromax] AdvReac Mild gastritis Verified 10/20/17 17:44 cephalexin AdvReac Mild Diarrhea Verified 10/20/17 17:44 olopatadine HCl AdvReac Mild dry nose Verified 10/20/17 17:44 [From Patanase] paroxetine HCl [From Paxil] AdvReac Mild GI upset, Verified 10/20/17 17:44 diarrhea potassium clavulanate AdvReac Mild Nausea Verified 10/20/17 17:44 [From Augmentin] sulfamethoxazole AdvReac Mild Other Verified 10/20/17 17:44 [From Bactrim] tramadol AdvReac Mild Nausea Verified 10/20/17 17:44 trimethoprim [From Bactrim] AdvReac Mild Other Verified 10/20/17 17:44 Home Medications: HOME MEDICATIONS ALPRAZolam [Xanax] 0.25 mg PO HS 12/28/14 [Last Taken 06/30/16] Multivitamin [Multi-Vitamin Daily] 1 each PO DAILY 12/28/14 [Last Taken Unknown] Levothyroxine Sodium [Synthroid] 25 mcg PO DAILY 04/14/15 [Last Taken Unknown] Losartan Potassium [Cozaar] 25 mg PO DAILY 06/19/16 [Last Taken Unknown] Albuterol Sulfate [Ventolin HFA] 1 puff IH PRN PRN 07/01/16 [Last Taken Unknown] Calcium Carbonate/Vitamin D3 [Calcium 500-Vit D3 400 Tablet] 1 tab PO DAILY [Last Taken 06/30/16] Albuterol Sulfate/Ipratropium [Duoneb 2.5-0.5MG/3ML Soln] 3 ml IH Q4H #1 nebu [Last Taken Unknown] Budesonide/Formoterol Fumarate [Symbicort 160-4.5 Mcg Inhaler] 2 puff IH BID [Last Taken Unknown] Alendronate Sodium [Fosamax] 70 mg PO DAILY 10/20/17 [Last Taken Unknown] Ipratropium/Albuterol Sulfate [Iprat-Albut 0.5-3(2.5) mg/3 ml] 3 ml IH QID PRN 10/20/17 [Last Taken Unknown] Omeprazole 40 mg PO PRN 10/20/17 [Last Taken Unknown] Exam - Exam Vital Signs: Vital Signs - Last Taken Temp 36.3 C L 10/20/17 16:35 Pulse 113 H 10/20/17 19:24 Resp 14 10/20/17 19:24 BP 159/78 10/20/17 19:24 Pulse Ox 2 L 10/20/17 19:24 Constitutional: Present: Alert, Oriented x3, Cooperative, Well developed, Mild distress ENT Exam: Present: normal ENT inspection Eye Exam: bilateral eye: normal inspection Neck: Present: full range of motion Back Exam: Present: normal inspection, no CVA tenderness, no vertebral tenderness Respiratory: Present: chest non-tender, no accessory muscle use, decreased breath sounds, rhonchi Cardiovascular/Chest: Present: no chest tenderness, no edema, no gallop, no JVD , tachycardia Peripheral Pulses: dorsalis-pedis (R): 3+, dorsalis-pedis (L): 3+ Abdomen: Present: Normal bowel sounds, soft, nontender, nondistended, no rebound tenderness /Rectal: Present: Exam deferred Extremity: Present: normal range of motion, non-tender, normal inspection, no pedal edema, no calf tenderness Skin Exam: Present: warm/dry Neurologic: Present: oriented x 3 Appearance: Present: appropriate appearance, appropriate insight Eye contact: Present: cooperative, good eye contact Thoughts: Present: normal thought pattern, no apparent hallucination Diagnostic Studies: Laboratory Results WBC 6.5 K/mm3 (4.0-10.5) 10/20/17 17:10 RBC 3.82 M/mm3 (4.2-5.4) L 10/20/17 17:10 Hgb 12.1 gm/dL (12.5-16.0) L 10/20/17 17:10 Hct 35.9 % (37.0-47.0) L 10/20/17 17:10 MCV 94.0 fl (78-100) 10/20/17 17:10 MCH 31.7 pg (27-31) H 10/20/17 17:10 MCHC 33.7 g/dl (32-36) 10/20/17 17:10 RDW 12.3 % (11.5-14.0) 10/20/17 17:10 Plt Count 273 K/mm3 (150-450) 10/20/17 17:10 MPV 8.7 fl (6.0-9.5) 10/20/17 17:10 Immature Gran % (Auto) 0.50 % (0.001-0.429) H 10/20/17 17:10 Immature Gran # (Auto) 0.03 K/mm3 (0.000-0.0310) 10/20/17 17:10 Neutrophils % 90.5 % (42-75.0) H 10/20/17 17:10 Lymphocytes % 6.6 % (20-51) L 10/20/17 17:10 Monocytes % 1.9 % (0.0-9) 10/20/17 17:10 Eosinophils % 0.3 % (0.0-3.0) 10/20/17 17:10 Basophils % 0.2 % (0.0-1.0) 10/20/17 17:10 Nucleated RBC % 0.0 k/mm3 (0-1) 10/20/17 17:10 Neutrophils # 5.9 K/mm3 (1.3-6.0) 10/20/17 17:10 Lymphocytes # 0.4 k/mm3 (1.5-3.5) L 10/20/17 17:10 Monocytes # 0.1 k/mm3 (0.0-1.0) 10/20/17 17:10 Eosinophils # 0.0 k/mm3 (0.0-0.7) 10/20/17 17:10 Absolute Basophils 0.0 k/mm3 (0.0-0.1) 10/20/17 17:10 Sodium 134 mmol/L (132-142) 10/20/17 17:10 Plasma Sodium 135 mmol/L (130-142) 10/20/17 17:10 Potassium 4.6 mmol/L (3.4-4.6) 10/20/17 17:10 Chloride 97 mmol/L (97-106) 10/20/17 17:10 Carbon Dioxide 29.7 mmol/L (24-32.6) 10/20/17 17:10 Anion Gap 11.9 mmol/L (6.8-13.8) 10/20/17 17:10 BUN 18 mg/dL (3-23) 10/20/17 17:10 Creatinine 0.77 mg/dL (0.4-1.4) 10/20/17 17:10 Est GFR (Non-Af Amer) 79 mL/min (60-130) 10/20/17 17:10 BUN/Creatinine Ratio 23.4 (9.0-21.6) H 10/20/17 17:10 Random Glucose 145 mg/dL (70-110) H 10/20/17 17:10 Lactic Acid, Venous 1.6 mmol/L (0.4-1.9) 10/20/17 18:05 Calcium 9.2 mg/dL (7.9-10.9) 10/20/17 17:10 Calcium Adj for Albumin 8.9 mg/dL (8.4-10.2) 10/20/17 17:10 Total Bilirubin 0.2 mg/dL (0.0-1.1) 10/20/17 17:10 AST 22 U/L (0-48) 10/20/17 17:10 ALT 21 U/L (19-67) 10/20/17 17:10 Alkaline Phosphatase 58 U/L (50-170) 10/20/17 17:10 Troponin I Less than 0.017 ng/ml (0.00-0.10) 10/20/17 17:10 B-Natriuretic Peptide 214 pg/mL (5-325) 10/20/17 17:10 Total Protein 8.4 gm/dL (6.2-8.2) H 10/20/17 17:10 Albumin 4.0 gm/dl (3.4-5.0) 10/20/17 17:10 Assessment/Plan - Narrative Narrative: Pneumonia- seen on CXR CXR: Preliminary per ERP, Right lower lobe pneumonia Continue with IV antbx, neb treatment and supplemented oxygen sputum culture and blood culture pending On adm Procalcitonin 0.05 and lactic acid 1.6 Acute on chronic COPD exacerbation Likely due to pneumonia Plan same as #1 Continue with antbx, neb treatments and supplemented oxygen. Chronic conditions- Stable Hypothyroidism Hypertension Continue with home medications Code status: Full GI ppx:Protonix VTE : full code and SCD Time 40 minutes and case discussed with DR Pierre. - Assessment/Plan (1) Pneumonia Problem: Acute Qualifiers: (2) Acute exacerbation of chronic obstructive pulmonary disease (COPD) Problem: Acute (3) Anxiety Problem: Chronic (4) Hypertension Problem: Chronic Qualifiers: (5) Hypothyroidism Problem: Chronic Qualifiers: (6) Rheumatoid arthritis Problem: Chronic Qualifiers: Rheumatoid arthritis location: unspecified site Rheumatoid factor presence : unspecified presence Qualified Code(s): M06.9 - Rheumatoid arthritis, unspecified
[2017-10-20] MEDS: ACETAMINOPHEN 325 MG TABLET PO PRN (22:15)
[2017-10-20] MEDS ORDERED: ALBUTEROL SULFATE/IPRATROPIUM 3 ML NEBU IH PRN (22:18)
[2017-10-20] MEDS ORDERED: ALBUTEROL SULFATE 200 PUFF INHALER IH PRN (22:18)
[2017-10-20] MEDS ORDERED: ALBUTEROL SULFATE/IPRATROPIUM 3 ML NEBU IH SCH (22:30)
[2017-10-20] MEDS: ALBUTEROL SULFATE/IPRATROPIUM 3 ML NEBU IH SCH (22:38)
[2017-10-20] MEDS ORDERED: METHYLPREDNISOLONE SOD SUCC 60 MG in WATER FOR INJ.,BACTERIOSTATIC 0 ML IV SCH (23:00)
[2017-10-20] MEDS: CALCIUM CARBONATE/VITAMIN D3 1 TAB TABLET PO SCH (23:15)
[2017-10-20] MEDS ORDERED: ALPRAZolam 0.5 MG TABLET ONE (23:35)
[2017-10-20] MEDS: METHYLPREDNISOLONE SOD SUCC/PF 125 MG/2 ML VIAL IV SCH (23:37)
[2017-10-20] MEDS: ALPRAZolam 0.5 MG TABLET PO SCH (23:37)
[2017-10-21] MEDS: ALBUTEROL SULFATE/IPRATROPIUM 3 ML NEBU IH SCH ×6 (03:36→23:05)
[2017-10-21] MEDS: METHYLPREDNISOLONE SOD SUCC/PF 125 MG/2 ML VIAL IV SCH (04:07)
[2017-10-21] MEDS: ACETAMINOPHEN 325 MG TABLET PO PRN ×3 (04:08→17:26)
[2017-10-21] MEDS ORDERED: ALENDRONATE SODIUM 70 MG TABLET PO SCH (06:30)
[2017-10-21] MEDS: PANTOPRAZOLE SODIUM 40 MG TABLET.EC PO SCH (06:48)
[2017-10-21] MEDS ORDERED: METHYLPREDNISOLONE SOD SUCC 60 MG in WATER FOR INJ.,BACTERIOSTATIC 0 ML IV SCH (07:00)
--- NOTE | 2017-10-21 07:33 | PN ---
Subjective - Date and Time Seen Date: 10/21/17 Time: 07:29 Subjective Narrative: Patient seen today AOX3 no acute distress, pt stated she want to be discharge home because she is feeling much better and no longer feels short of breath. Notice palpitation after neb treatment. Still with a non productive cough, no fever or chills. Objective - Review of Systems Generalized/Overall Review: Reports: No Symptoms Reported EENTM: Reports: No Symptoms Reported Respiratory: Reports: Cough Cardiac: Reports: Palpitations Abdominal: Reports: No Symptoms Reported Genitourinary Symptoms: Reports: No Symptoms Reported Musculoskeletal Complaints: Reports: No Symptoms Reported Neurological: Reports: No Symptoms Reported Skin: Reports: No Symptoms Reported Endocrine: Reports: No Symptoms Reported - Vitals Vitals: Last Vital Signs Temp 36.7 C 10/21/17 07:13 Pulse 98 10/21/17 07:25 Resp 22 H 10/21/17 07:25 BP 148/69 10/21/17 07:13 Pulse Ox 96 10/21/17 07:25 - Exam Constitutional: Present: Alert, Oriented x3, Cooperative, Well developed, No distress, Elderly ENT Exam: Present: hearing grossly normal Breasts: Present: Exam deferred Respiratory: Present: chest non-tender, normal breath sounds, no respiratory distress, decreased breath sounds, rhonchi Cardiovascular/Chest: Present: normal peripheral pulses, no chest tenderness, no edema, no gallop, irregularly irregular Abdomen: Present: Normal bowel sounds, soft, nontender, nondistended, no rebound tenderness /Rectal: Present: Exam deferred Extremity: Present: normal range of motion, non-tender, normal inspection, no pedal edema, no calf tenderness, normal capillary refill Skin Exam: Present: warm/dry Neurologic: Present: oriented x 3 Appearance: Present: appropriate appearance Eye contact: Present: cooperative Thoughts: Present: normal thought pattern Assessment/Plan Plan Narrative: Pneumonia- seen on CXR CXR: Preliminary per ERP, Right lower lobe pneumonia Continue with IV antbx, neb treatment and supplemented oxygen sputum culture and blood culture pending On adm Procalcitonin 0.05 and lactic acid 1.6 Acute on chronic COPD exacerbation Likely due to pneumonia Plan same as #1 Continue with antbx, neb treatments and supplemented oxygen. Chronic conditions- Stable Hypothyroidism Hypertension Continue with home medications Code status: Full GI ppx:Protonix VTE : full code and SCD Time 20 minutes and case discussed with DR Pierre. - Problems/Diagnosis (1) Pneumonia Problem: Acute Qualifiers: (2) Acute exacerbation of chronic obstructive pulmonary disease (COPD) Problem: Acute (3) Anxiety Problem: Chronic (4) Hypertension Problem: Chronic Qualifiers: (5) Hypothyroidism Problem: Chronic Qualifiers: (6) Rheumatoid arthritis Problem: Chronic Qualifiers: Rheumatoid arthritis location: unspecified site Rheumatoid factor presence : unspecified presence Qualified Code(s): M06.9 - Rheumatoid arthritis, unspecified
[2017-10-21] MEDS ORDERED: ALBUTEROL SULFATE 2.5 MG/0.5 ML VIAL.NEB IH PRN (07:45)
[2017-10-21] MEDS: MULTIVITAMINS 1 CAP CAPSULE PO SCH (08:47)
[2017-10-21] MEDS: LOSARTAN POTASSIUM 50 MG TABLET PO SCH (08:47)
[2017-10-21] MEDS: CALCIUM CARBONATE/VITAMIN D3 1 TAB TABLET PO SCH (08:48)
[2017-10-21] MEDS: LEVOTHYROXINE SODIUM 25 MCG TABLET PO SCH (08:48)
[2017-10-21] MEDS ORDERED: FLUTICASONE/SALMETEROL 14 PUFF DISK.W.DEV IH SCH ×2 (09:00→09:15)
[2017-10-21] MEDS ORDERED: LEVOTHYROXINE SODIUM 50 MCG TABLET PO SCH (09:00)
[2017-10-21] MEDS ORDERED: METHYLPREDNISOLONE SOD SUCC 40 MG in WATER FOR INJ.,BACTERIOSTATIC 0 ML IV SCH (09:00)
[2017-10-21] MEDS: FLUTICASONE PROPIONATE 120 SPRAY INHALER NS SCH (09:38)
[2017-10-21] MEDS: METHYLPREDNISOLONE SOD SUCC 40 MG in WATER FOR INJ.,BACTERIOSTATIC 0 ML IV SCH ×2 (09:38→17:27)
[2017-10-21] MEDS: LORATADINE 10 MG TABLET PO SCH (09:38)
[2017-10-21] MEDS: SYMBICORT 160/4.5 INH SCH ×2 (11:02→20:33)
[2017-10-21] MEDS ORDERED: LEVOFLOXACIN/D5W 500 MG/100 ML BAG IV SCH (21:00)
[2017-10-21] MEDS: ALPRAZolam 0.5 MG TABLET PO SCH (22:35)
[2017-10-22] MEDS: METHYLPREDNISOLONE SOD SUCC 40 MG in WATER FOR INJ.,BACTERIOSTATIC 0 ML IV SCH ×2 (00:44→08:32)
[2017-10-22] MEDS: ACETAMINOPHEN 325 MG TABLET PO PRN ×2 (00:51→06:30)
[2017-10-22] MEDS: ALBUTEROL SULFATE/IPRATROPIUM 3 ML NEBU IH SCH ×2 (04:07→06:02)
[2017-10-22 05:40] LABS: Hematocrit 31.9 % (37.0-47.0); Hemoglobin 10.7 gm/dL (12.5-16.0); Mean Cell Volume 93.8 fl (78-100); Mean Corpuscular Hemoglobin 31.5 pg (27-31); Mean Corpuscular Hgb Conc 33.5 g/dl (32-36); Neutrophil # 9.3 K/mm3 (1.3-6.0); Neutrophil % 89.8 % (42-75.0); Platelet Count 243 K/mm3 (150-450); Red Cell Distribution Width 12.8 % (11.5-14.0); White Blood Count 10.3 K/mm3 (4.0-10.5)
[2017-10-22 05:45] LABS: BUN/Creatinine Ratio 29.3 (9.0-21.6); Carbon Dioxide 29.4 mmol/L (24-32.6); Estimated Creat Clear 48.2; Potassium 4.2 mmol/L (3.4-4.6)
[2017-10-22 05:46] LABS: Anion Gap 11.8 mmol/L (6.8-13.8); Calcium * 8.7 mg/dL (7.9-10.9)
[2017-10-22] MEDS ORDERED: ALENDRONATE SODIUM 70 MG TABLET PO SCH (06:00)
[2017-10-22] MEDS: PANTOPRAZOLE SODIUM 40 MG TABLET.EC PO SCH (06:29)
[2017-10-22] MEDS: LEVOTHYROXINE SODIUM 25 MCG TABLET PO SCH (06:32)
[2017-10-22 07:18] VITALS: BP 160/80
--- NOTE | 2017-10-22 07:57 | DS ---
(1) Pneumonia Problem: Acute Qualifiers: (2) SOB (shortness of breath) Problem: Acute (3) COPD (chronic obstructive pulmonary disease) Problem: Chronic Qualifiers: COPD type: unspecified COPD Qualified Code(s): J44.9 - Chronic obstructive pulmonary disease, unspecified (4) Sinusitis Problem: Acute Description of Stay: ADMISSION DATE: 10/20/2017 DISCHARGE DATE: 10/22/2017 ADMISSION HPI by STACY Conner: 72 years old female adm to the hospital from home. pt stated she has been having excessive shortness of breath x1 week. She was self medicating at home for sinusitis before experiencing the excessive shortness of breath. Despite nebulizer treatment, increased of her home oxygen. pt was unable to recover from the shortness of breath and felt she was getting worst so she came to the ER. PMH significant for End stage COPD, pneumonia,hypothyroidism,hypertension, prolapse bowel and Raynauds disease. In ER CXR: Right lower lobe pneumonia, she was initiated on Levaquin, neb treatment and IV steroids. Plan of care discussed with pt she verbalized understanding and agree. HOSPITAL COURSE: The patient presented to the hospital after experiencing nasal congestion and increased shortness of breath secondary to inability to breathe deeply through her nose. Of note, the patient does wear oxygen at all times at home. There is also concern for possible pneumonia as well as possible acute exacerbation of COPD. The patient will be discharged home and instructed completely additional 5 days of PO Levaquin. A prescription for Flonase was also electronically signed for the patient in attempts to improve the patients nasal congestion. She is also instructed to use Breathe Right nasal strips as needed. At this time, the patient will not be discharged home on any steroids as I did not appreciate any wheezes on exam and the patient had adequate air movement, especially for her. The patient will follow-up with me in clinic later this week. FOLLOW-UP APPOINTMENTS: -PCP, Dr. Penaloza, later this week NEW OR CHANGED MEDICATIONS: -Levofloxacin 750mg PO daily X 5 days -Flonase 1-2 sprays each nostril BID as needed for nasal congestion DISCONTINUED MEDICATIONS: None RADIOLOGY REPORTS: PA and lateral chest x-ray on 10/20/2017 showed: Chronic severe emphysema. Increased interstitial lung markings in the lung bases edema versus developing infiltrate. Procedures Performed: none Results and Findings: Laboratory Tests 10/20/17 10/20/17 10/20/17 17:10 17:10 17:10 WBC 6.5 Hgb 12.1 L MCV 94.0 Creatinine Troponin I Less than 0.017 B-Natriuretic Peptide 214 Procalcitonin Less than 0.05 L 10/22/17 10/22/17 05:20 05:20 WBC 10.3 D Hgb 10.7 L MCV 93.8 Creatinine 0.82 Troponin I B-Natriuretic Peptide Procalcitonin Discharge Disposition: Home self care Disposition: Home self-care Condition: Stable Discharge Activity: Activity as tolerated Discharge Diet: Resume usual diet Referrals: Victoria Penaloza DO [Primary Care Provider] - Problem Oriented Discharge Instructions to Patient/Family: Community-Acquired Pneumonia, Adult, [id number] Additional Patient Instructions (free text): Follow-up with Dr. Penaloza later this week Prescriptions (Any new or edited meds): Fluticasone Propionate [Flonase] 1 - 2 spray NS BID PRN #1 inhaler PRN Reason: Congestion Levofloxacin [Levaquin] 750 mg PO DAILY 5 Days #5 tablet Complete Home Medications List: Complete Home Medication List: ALPRAZolam [Xanax] 0.25 mg PO HS 12/28/14 Multivitamin [Multi-Vitamin Daily] 1 each PO DAILY 12/28/14 Levothyroxine Sodium [Synthroid] 25 mcg PO DAILY 04/14/15 Losartan Potassium [Cozaar] 25 mg PO DAILY 06/19/16 Albuterol Sulfate [Ventolin HFA] 1 puff IH PRN PRN 07/01/16 Calcium Carbonate/Vitamin D3 [Calcium 500-Vit D3 400 Tablet] 1 tab PO DAILY Albuterol Sulfate/Ipratropium [Duoneb 2.5-0.5MG/3ML Soln] 3 ml IH Q4H #1 nebu Budesonide/Formoterol Fumarate [Symbicort 160-4.5 Mcg Inhaler] 2 puff IH BID Alendronate Sodium [Fosamax] 70 mg PO DAILY 10/20/17 Ipratropium/Albuterol Sulfate [Iprat-Albut 0.5-3(2.5) mg/3 ml] 3 ml IH QID PRN 10/20/17 Omeprazole 40 mg PO PRN 10/20/17 Fluticasone Propionate [Flonase] 1 - 2 spray NS BID PRN #1 inhaler 10/22/17 Levofloxacin [Levaquin] 750 mg PO DAILY 5 Days #5 tablet 10/22/17
[2017-10-22] MEDS: CALCIUM CARBONATE/VITAMIN D3 1 TAB TABLET PO SCH (08:31)
[2017-10-22] MEDS: LORATADINE 10 MG TABLET PO SCH (08:32)
[2017-10-22] MEDS: FLUTICASONE PROPIONATE 120 SPRAY INHALER NS SCH (08:32)
[2017-10-22] MEDS: LOSARTAN POTASSIUM 50 MG TABLET PO SCH (08:32)
[2017-10-22] MEDS: SYMBICORT 160/4.5 INH SCH (08:32)
[2017-10-22] MEDS: MULTIVITAMINS 1 CAP CAPSULE PO SCH (08:32)
== END 2017-10-22 09:15 | disposition home health service (06) ==
LOC: ER 16:33 → MS 19:18
PROVIDERS: ADMIT Nurse Practitioner; ATTEND Internal Medicine
DX: J18.9 Pneumonia, unspecified organism (principal); J44.1 Chronic obstructive pulmonary disease with (acute) exacerbation; Z87.891 Personal history of nicotine dependence; J01.90 Acute sinusitis, unspecified; E03.9 Hypothyroidism, unspecified; I10 Essential (primary) hypertension; F41.9 Anxiety disorder, unspecified
CPT/HCPCS: 36415; 71020; 80048; 80053; 83605; 83880; 84145; 84484; 85025; 87040; 87070; 93005; 94640; 96365; 96366; 96375; 96376; 99285; G0378

== ENCOUNTER 2018-10-14 14:03 | Inpatient (IN) | payer MEDICAID, MEDICARE ==
[2018-10-14 14:43] LABS: Hematocrit 36.8 % (37.0-47.0); Mean Cell Volume 93.9 fl (78-100); Mean Corpuscular Hemoglobin 30.6 pg (27-31); Mean Corpuscular Hgb Conc 32.6 g/dl (32-36); Mean Platelet Volume 8.2 fl (8-12.5); Neutrophil # 7.9 K/mm3 (1.3-6.0); Neutrophil % 72.2 % (42-75.0); Platelet Count 275 K/mm3 (150-450); Red Blood Count 3.92 M/mm3 (4.2-5.4); Red Cell Distribution Width 13.8 % (11.5-14.0); White Blood Count 10.9 K/mm3 (4.0-10.5)
[2018-10-14 14:55] LABS: Troponin I Less than 0.017 ng/mL (0.00-0.10)
[2018-10-14 14:57] LABS: ALT 16 U/L (19-67); AST 18 U/L (0-48); Albumin * 3.3 gm/dl (3.4-5.0); Alkaline Phosphatase * 68 U/L (50-170); Anion Gap 7.4 mmol/L (6.8-13.8); BNP * 1176 pg/mL (5-325); Bilirubin, Total 0.5 mg/dL (0.0-1.1); Blood Urea Nitrogen 17 mg/dL (3-23); Ca. Corrected For Albumin 9.3 mg/dL (8.4-10.2); Calcium * 9.1 mg/dL (7.9-10.9); Chloride 87 mmol/L (97-106); Glucose * 110 mg/dL (70-110); Magnesium 1.8 mg/dL (1.2-2.8); Potassium 4.4 mmol/L (3.4-4.6); Sodium 123 mmol/L (132-142); Total Protein 7.4 gm/dL (6.2-8.2)
[2018-10-14] MEDS ORDERED: ALBUTEROL SULFATE/IPRATROPIUM 3 ML NEBU IH ONE ×2 (15:06→17:55)
[2018-10-14] MEDS ORDERED: METHYLPREDNISOLONE SOD SUCC/PF 40 MG/ML VIAL IV ONE (15:06)
--- NOTE | 2018-10-14 15:09 | ERNOTE ---
Dyspnea - General Presenting Symptoms: shortness of breath - that gets significantly worse with any form of exertion Time Seen by Provider: 10/14/18 14:17 Source: patient Exam Limitations: no limitations - Immun/Allergies/Home Medications Immunizations: IMMUNIZATION HX Immunizations Up to Date Yes History of Influenza Vaccine Yes Hx Pneumococcal Vaccination Yes Allergies/Adverse Reactions: Allergies telithromycin [From KETEK] Allergy (Mild, Verified 10/14/18 14:12) unknown amlodipine besylate [From Norvasc] Adverse Reaction (Mild, Verified 10/14/18 14:12) does not work azithromycin [From Zithromax] Adverse Reaction (Mild, Verified 10/14/18 14:12) gastritis cephalexin Adverse Reaction (Mild, Verified 10/14/18 14:12) Diarrhea olopatadine HCl [From Patanase] Adverse Reaction (Mild, Verified 10/14/18 14:12) dry nose paroxetine HCl [From Paxil] Adverse Reaction (Mild, Verified 10/14/18 14:12) GI upset, diarrhea potassium clavulanate [From Augmentin] Adverse Reaction (Mild, Verified 10/14/18 14:12) Nausea sulfamethoxazole [From Bactrim] Adverse Reaction (Mild, Verified 10/14/18 14:12) Other tramadol Adverse Reaction (Mild, Verified 10/14/18 14:12) Nausea trimethoprim [From Bactrim] Adverse Reaction (Mild, Verified 10/14/18 14:12) Other glycopyrrolate [From [place] Starter] Adverse Reaction (Verified 10/14/18 14:12) blood in sputum Home Medications: HOME MEDICATIONS Levothyroxine Sodium [Synthroid] 25 mcg PO DAILY 04/14/15 [Last Taken Unknown] Calcium Carbonate/Vitamin D3 [Calcium 500-Vit D3 400 Tablet] 1 tab PO DAILY 07/01/16 [Last Taken 06/30/16] Albuterol Sulfate/Ipratropium [Duoneb 2.5-0.5MG/3ML Soln] 3 ml INHALATION Q4H #1 nebu 07/19/16 [Last Taken Unknown] Budesonide/Formoterol Fumarate [Symbicort 160-4.5 Mcg Inhaler] 2 puff INHALATION BID 07/27/16 [Last Taken Unknown] Alendronate Sodium [Fosamax] 70 mg PO DAILY 10/20/17 [Last Taken Unknown] Ipratropium/Albuterol Sulfate [Iprat-Albut 0.5-3(2.5) mg/3 ml] 3 ml INHALATION QID PRN 10/20/17 [Last Taken Unknown] Omeprazole 40 mg PO PRN 10/20/17 [Last Taken Unknown] albuterol sulfate HFA 90 mcg/actuation aerosol inhaler 1 puff IH Q6H PRN #8 g 05/20/18 [Last Taken Unknown] oxybutynin chloride 5 mg tablet 5 mg PO BID #60 tab 05/24/18 [Last Taken Unknown] losartan 25 mg tablet 25 mg PO DAILY #30 tab 07/24/18 [Last Taken Unknown] zoster vaccine live (PF) 19,400 unit/0.65 mL subcutaneous suspension 0.65 ml SUB-Q ONCE #1 ea 07/24/18 [Last Taken Unknown] Budesonide/Formoterol Fumarate [Symbicort 160-4.5 Mcg Inhaler] 10.2 gm INHALATION BID 08/21/18 [Last Taken Unknown] Fesoterodine Fumarate [Toviaz] 4 mg PO DAILY 08/21/18 [Last Taken Unknown] Montelukast Sodium [Singulair] 10 mg PO DAILY 08/21/18 [Last Taken Unknown] loratadine 10 mg tablet 10 mg PO DAILY #30 tab 08/29/18 [Last Taken Unknown] gabapentin 100 mg capsule 100 mg PO DAILY #30 cap 09/23/18 [Last Taken Unknown] alprazolam 0.25 mg tablet See Rx Instructions PO HS #90 tab 10/02/18 [Last Taken Unknown] hydrochlorothiazide 12.5 mg capsule 12.5 mg PO Q48H #15 cap 10/02/18 [Last Taken Unknown] prednisone 10 mg tablet See Rx Instructions PO .COMPLEX #50 tab 10/07/18 [Last Taken Unknown] levofloxacin 500 mg tablet 500 mg PO DAILY 5 Days #5 tab 10/11/18 [Last Taken Unknown] - History of Present Illness Narrative: Patient has known severe COPD and is usually able to manage reasonably walled home with DuoNeb. However is been getting progressively worse and now she struggling to even walk across a room without being profoundly short of breath. 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 Initiating event: Reports: unknown Frequency of episodes: Reports: frequent episodes Modifying Factors - (Improves): Reports: albuterol Modifying Factors (Worsens): Reports: activity Associated Symptoms-Dyspnea: Reports: cough Prior Treatment: Reports: recently seen Review of Systems - Review of Systems Constitutional: Present: See HPI EYE: Present: no symptoms reported ENT: Present: no symptoms reported Respiratory: Present: See HPI Cardiology: Present: no symptoms reported Gastrointestinal/Abdominal: Present: no symptoms reported Genitourinary: Present: no symptoms reported Musculoskeletal: Present: no symptoms reported Skin: Present: no symptoms reported Neurological: Present: no symptoms reported Endocrine: Present: no symptoms reported Hematologic/Lymphatic: Present: no symptoms reported Psych: Present: no symptoms reported Medical History (Last Reviewed 10/14/18 @ 14:12 by Iesha Arroyo RN) Neuropathy (Acute) Raynauds syndrome (Chronic) Osteoporosis (Chronic) Hypothyroidism (acquired) (Chronic) GERD (gastroesophageal reflux disease) (Chronic) Essential hypertension (Chronic) Depression (Chronic) Chronic respiratory failure with hypoxia (Chronic) COPD (chronic obstructive pulmonary disease) (Chronic) Anxiety (Chronic) COPD (chronic obstructive pulmonary disease) (Chronic) Connective tissue disease Lupus Rectocele Surgical History: Surgical History (Last Reviewed 10/14/18 @ 14:12 by Iesha Arroyo RN) History of abdominal hysterectomy Onset Date: ~1979 History of appendectomy Onset Date: ~1982 History of colonoscopy with polypectomy Onset Date: ~2004 History of dilatation and curettage Onset Date: ~1968 History of oophorectomy Onset Date: ~1979 History of tonsillectomy Onset Date: ~1956 History of tooth extraction Onset Date: ~2008 2002;2012 Dr. Barrett [facility] extracted 2002 in [place]. Family History: Family History (Last Reviewed 10/14/18 @ 14:12 by Iesha Arroyo RN) Mother Hypertension Grandmother , maternal Diabetes Social History: Preferred Language Serbian Smoking Status Former smoker Abuse History No History of abuse Psych History Hx of Anxiety,Hx of Depression Alcohol Use none Drug Use none (Last Updated 09/12/18 @ 09:13 by Victoria Penaloza DO) No Social History Section defined Physical Exam - Physical Exam General Appearance: Present: wd/wn, alert, moderate distress, severe distress - severe distress with any form of exertion Head Exam: Present: normal inspection, no evidence of injury Eye Exam: Normal inspection: bilateral, PERRL: bilateral Ears, Nose, Throat: Present: normal ENT inspection, H, normal pharynx Neck: Present: normal inspection, nontender Respiratory: Present: no accessory muscle use, chest nontender, respiratory distress, accessory muscle use, decreased breath sounds, wheezing Cardiovascular/Chest: Present: no murmur, normal peripheral pulses, tachycardia Gastrointestinal/Abdominal: Present: normal bowel sounds, nontender, nondistended, soft, no organomegaly Rectal Exam: Present: deferred Back Exam: Present: normal inspection, normal range of motion Extremity Exam: Present: normal inspection, non-tender, no edema, normal range of motion Neurological Exam: Present: alert, oriented, normal mood/affect Skin Exam: Present: normal color, warm/dry Lymphatic Exam: Present: no adenopathy ED Progress - Results and Orders Patient's Lab Results:: I have reviewed the patient's lab results. - Vital Signs Patient's Vital Signs:: I have reviewed the patient's vital signs. Vital Signs: Vital Signs 10/14/18 14:03 Temperature 37.5 C Pulse Rate 113 H Respiratory Rate 20 Blood Pressure 156/88 H O2 Sat by Pulse Oximetry 95 - EKG EKG: other - sinus tachycardia EKG read: Reviewed by me - X-Ray X-Ray #1 X-Ray: chest Interpretation: Reviewed by me - Progress/Reassessment Chief Complaint: Dyspnea Plan - Plan Plan: I tried getting the patient up with simple pacing back and forth in the room and her O2 saturation went down to 83% and when she went into severe respiratory distress. I discussed the case with Dr. Pierre as well as case management and Ms. Arroyo meets inpatient criteria. We will need to go to work on her COPD and try to get her as right as we possibly can as well as correcting her hyponatremia Departure Clinical Impression: Acute exacerbation of chronic obstructive pulmonary disease (COPD), Hypoxia, Hyponatremia - Departure Disposition: Still a patient Condition: Fair Referrals: Victoria Penaloza DO [Primary Care Provider] -
[2018-10-14] MEDS ORDERED: METHYLPREDNISOLONE SOD SUCC/PF 125 MG/2 ML VIAL ONE (15:12)
--- NOTE | 2018-10-14 17:08 | HP ---
Chief Complaint - Chief Complaint Date of Service: 10/14/18 Time of Service: 16:59 Chief Complaint: shortness of breath History of Present Illness: Francis cuenca, is 73-year-old white female, patient of Dr. Penaloza, with past medical history of COPD, hypertension, hypothyroidism, osteoporosis, who was admitted on 10/14/2018 because of increasing shortness of breath. For the last 2 weeks the patient has been having increasing shortness of breath associated with cough productive of yellowish phlegm. She denied any fever but admitted to having the chills. Today her shortness of breath was worst and so she went or emergency room where she was found to be hypoxic in the low 80% saturation especially with exertion. Her white blood cell count was slightly elevated , Sodium of 123 and her chest x-ray showed no acute cardiopulmonary findings except for chronic changes. She was then admitted for acute COPD exacerbation. Medical History (Last Reviewed 10/14/18 @ 17:20 by Graciela Conner RN) Neuropathy (Acute) Raynauds syndrome (Chronic) Osteoporosis (Chronic) Hypothyroidism (acquired) (Chronic) GERD (gastroesophageal reflux disease) (Chronic) Essential hypertension (Chronic) Depression (Chronic) Chronic respiratory failure with hypoxia (Chronic) COPD (chronic obstructive pulmonary disease) (Chronic) Anxiety (Chronic) COPD (chronic obstructive pulmonary disease) (Chronic) Connective tissue disease Rectocele Surgical History: Surgical History (Last Reviewed 10/14/18 @ 17:20 by Graciela Conner RN) History of abdominal hysterectomy Onset Date: ~1979 History of appendectomy Onset Date: ~1982 History of colonoscopy with polypectomy Onset Date: ~2004 History of dilatation and curettage Onset Date: ~1968 History of oophorectomy Onset Date: ~1979 History of tonsillectomy Onset Date: ~1956 History of tooth extraction Onset Date: ~2008 2002;2012 Dr. Nena acosta extracted 2002 bottom 2012 in [place]. Family History: Family History (Last Reviewed 10/14/18 @ 17:21 by Graciela Conner RN) Mother Hypertension Grandmother , maternal Diabetes Social History: Preferred Language Norwegian Smoking Status Former smoker Abuse History No History of abuse Psych History Hx of Anxiety,Hx of Depression Alcohol Use none Drug Use none (Last Updated 09/12/18 @ 09:13 by Victoria Penaloza DO) No Social History Section defined Review Of Systems (GEN) - Review of Systems Generalized/Overall Review: Present: Chills. Absent: Fever Respiratory: Present: Cough, Shortness of Breath, Wheezing Cardiac: Absent: Chest Pain, Edema, Palpitations Abdominal: Absent: Nausea, Vomiting Genitourinary: Absent: Urgency, Frequency Musculoskeletal: Absent: Joint Pain Immunizations: IMMUNIZATION HX Immunizations Up to Date Yes History of Influenza Vaccine Yes Hx Pneumococcal Vaccination Yes Allergies/Adverse Reactions: Allergies Allergy/AdvReac Type Severity Reaction Status Date / Time telithromycin [From KETEK] Allergy Mild unknown Verified 10/14/18 16:45 amlodipine besylate AdvReac Mild does not Verified 10/14/18 16:45 [From Norvasc] work azithromycin [From Zithromax] AdvReac Mild gastritis Verified 10/14/18 16:45 cephalexin AdvReac Mild Diarrhea Verified 10/14/18 16:45 olopatadine HCl AdvReac Mild dry nose Verified 10/14/18 16:45 [From Patanase] paroxetine HCl [From Paxil] AdvReac Mild GI upset, Verified 10/14/18 16:45 diarrhea potassium clavulanate AdvReac Mild Nausea Verified 10/14/18 16:45 [From Augmentin] sulfamethoxazole AdvReac Mild Other Verified 10/14/18 16:45 [From Bactrim] tramadol AdvReac Mild Nausea Verified 10/14/18 16:45 trimethoprim [From Bactrim] AdvReac Mild Other Verified 10/14/18 16:45 glycopyrrolate AdvReac blood in Verified 10/14/18 16:45 [From [facility] sputum Starter] Home Medications: HOME MEDICATIONS Levothyroxine Sodium [Synthroid] 25 mcg PO DAILY 04/14/15 [Last Taken Unknown] Calcium Carbonate/Vitamin D3 [Calcium 500-Vit D3 400 Tablet] 1 tab PO DAILY 07/01/16 [Last Taken 06/30/16] Albuterol Sulfate/Ipratropium [Duoneb 2.5-0.5MG/3ML Soln] 3 ml INHALATION Q4H #1 nebu 07/19/16 [Last Taken Unknown] Omeprazole 40 mg PO PRN PRN 10/20/17 [Last Taken Unknown] losartan 25 mg tablet 25 mg PO DAILY #30 tab 07/24/18 [Last Taken Unknown] Fesoterodine Fumarate [Toviaz] 4 mg PO DAILY 08/21/18 [Last Taken Unknown] gabapentin 100 mg capsule 100 mg PO DAILY #30 cap 09/23/18 [Last Taken Unknown] alprazolam 0.25 mg tablet See Rx Instructions PO HS #90 tab 10/02/18 [Last Taken Unknown] hydrochlorothiazide 12.5 mg capsule 12.5 mg PO Q48H #15 cap 10/02/18 [Last Taken Unknown] levofloxacin 500 mg tablet 500 mg PO DAILY 5 Days #5 tab 10/11/18 [Last Taken Unknown] Budesonide/Formoterol Fumarate [Symbicort 160-4.5 Mcg Inhaler] 2 puff IH BID 10/14/18 [Last Taken Unknown] Loratadine 10 mg PO DAILY PRN 10/14/18 [Last Taken Unknown] Exam - Exam Vital Signs: Vital Signs - Last Taken Temp 37.5 C 10/14/18 14:20 Pulse 115 H 10/14/18 15:30 Resp 28 H 10/14/18 15:30 BP 156/88 H 10/14/18 14:20 Pulse Ox 93 10/14/18 15:30 Constitutional: Present: Alert, Oriented x3, Cooperative ENT Exam: Present: hearing grossly normal Eye Exam: bilateral eye: normal inspection, PERRL, EOMI Neck: Present: supple Respiratory: Present: decreased breath sounds, wheezing. Absent: crackles, rales Cardiovascular/Chest: Present: regular rate, rhythm, no JVD, no murmur Abdomen: Present: Normal bowel sounds, soft, nontender, nondistended Extremity: Present: no pedal edema, no calf tenderness Diagnostic Studies: Abnormal Lab Results 10/14/18 10/14/18 10/14/18 Range/Units 14:26 14:28 14:28 WBC 10.9 H (4.0-10.5) K/mm3 RBC 3.92 L (4.2-5.4) M/mm3 Hgb 12.0 L (12.5-16.0) gm/dL Hct 36.8 L (37.0-47.0) % Immature Gran % (Auto) 3.70 H (0.001-0.429) % Immature Gran # (Auto) 0.40 H (0.000-0.0310) K/mm3 Lymphocytes % 6.8 L (20-51) % Monocytes % 9.7 H (0.0-9) % Eosinophils % 6.9 H (0.0-3.0) % Neutrophils # 7.9 H (1.3-6.0) K/mm3 Lymphocytes # 0.74 L (1.5-3.5) k/mm3 Monocytes # 1.1 H (0.0-1.0) k/mm3 Eosinophils # 0.8 H (0.0-0.7) k/mm3 pO2 73.9 L (83.0-108.0) mmHg Total CO2 28.8 H (19.0-24.0) mmol/L Base Excess 3.1 H (-2.0-3.0) mmol/L Sodium 123 L (132-142) mmol/L Plasma Sodium 123 L (130-142) mmol/L Chloride 87 L (97-106) mmol/L Carbon Dioxide 33.0 H (24-32.6) mmol/L BUN/Creatinine Ratio 23.0 H (9.0-21.6) ALT 16 L (19-67) U/L B-Natriuretic Peptide 1176 H (5-325) pg/mL Albumin 3.3 L (3.4-5.0) gm/dl Laboratory Results WBC 10.9 K/mm3 (4.0-10.5) H 10/14/18 14:28 RBC 3.92 M/mm3 (4.2-5.4) L 10/14/18 14:28 Hgb 12.0 gm/dL (12.5-16.0) L 10/14/18 14:28 Hct 36.8 % (37.0-47.0) L 10/14/18 14:28 MCV 93.9 fl (78-100) 10/14/18 14:28 MCH 30.6 pg (27-31) 10/14/18 14:28 MCHC 32.6 g/dl (32-36) 10/14/18 14:28 RDW 13.8 % (11.5-14.0) 10/14/18 14:28 Plt Count 275 K/mm3 (150-450) 10/14/18 14:28 MPV 8.2 fl (8-12.5) 10/14/18 14:28 Immature Gran % (Auto) 3.70 % (0.001-0.429) H 10/14/18 14:28 Immature Gran # (Auto) 0.40 K/mm3 (0.000-0.0310) H 10/14/18 14:28 Neutrophils % 72.2 % (42-75.0) 10/14/18 14:28 Lymphocytes % 6.8 % (20-51) L 10/14/18 14:28 Monocytes % 9.7 % (0.0-9) H 10/14/18 14:28 Eosinophils % 6.9 % (0.0-3.0) H 10/14/18 14:28 Basophils % 0.7 % (0.0-1.0) 10/14/18 14:28 Nucleated RBC % 0.0 k/mm3 (0-1) 10/14/18 14:28 Neutrophils # 7.9 K/mm3 (1.3-6.0) H 10/14/18 14:28 Lymphocytes # 0.74 k/mm3 (1.5-3.5) L 10/14/18 14:28 Monocytes # 1.1 k/mm3 (0.0-1.0) H 10/14/18 14:28 Eosinophils # 0.8 k/mm3 (0.0-0.7) H 10/14/18 14:28 Absolute Basophils 0.1 k/mm3 (0.0-0.1) 10/14/18 14:28 pCO2 41.7 mmHg (32.0-45.0) 10/14/18 14:26 pO2 73.9 mmHg (83.0-108.0) L 10/14/18 14:26 HCO3 27.6 mmol/L (21.0-28.0) 10/14/18 14:26 Total CO2 28.8 mmol/L (19.0-24.0) H 10/14/18 14:26 Base Excess 3.1 mmol/L (-2.0-3.0) H 10/14/18 14:26 ABG pH 7.44 (7.35-7.45) 10/14/18 14:26 ABG O2 Sat (Measured) 95.3 % (94.0-98.0) 10/14/18 14:26 Sodium 123 mmol/L (132-142) L 10/14/18 14:28 Plasma Sodium 123 mmol/L (130-142) L 10/14/18 14:28 Potassium 4.4 mmol/L (3.4-4.6) 10/14/18 14:28 Chloride 87 mmol/L (97-106) L 10/14/18 14:28 Carbon Dioxide 33.0 mmol/L (24-32.6) H 10/14/18 14:28 Anion Gap 7.4 mmol/L (6.8-13.8) 10/14/18 14:28 BUN 17 mg/dL (3-23) 10/14/18 14:28 Creatinine 0.74 mg/dL (0.4-1.4) 10/14/18 14:28 Est GFR (Non-Af Amer) 82 mL/min (60-130) 10/14/18 14:28 BUN/Creatinine Ratio 23.0 (9.0-21.6) H 10/14/18 14:28 Random Glucose 110 mg/dL (70-110) 10/14/18 14:28 Calcium 9.1 mg/dL (7.9-10.9) 10/14/18 14:28 Calcium Adj for Albumin 9.3 mg/dL (8.4-10.2) 10/14/18 14:28 Magnesium 1.8 mg/dL (1.2-2.8) 10/14/18 14:28 Total Bilirubin 0.5 mg/dL (0.0-1.1) 10/14/18 14:28 AST 18 U/L (0-48) 10/14/18 14:28 ALT 16 U/L (19-67) L 10/14/18 14:28 Alkaline Phosphatase 68 U/L (50-170) 10/14/18 14:28 Troponin I Less than 0.017 ng/mL (0.00-0.10) 10/14/18 14:28 B-Natriuretic Peptide 1176 pg/mL (5-325) H 10/14/18 14:28 Total Protein 7.4 gm/dL (6.2-8.2) 10/14/18 14:28 Albumin 3.3 gm/dl (3.4-5.0) L 10/14/18 14:28 Assessment/Plan - Assessment/Plan (1) SOB (shortness of breath) Assessment: continue with oxygen, breathing treatments Problem: Acute (2) Acute exacerbation of chronic obstructive pulmonary disease (COPD) Assessment: likely acute bronchitis -continue with breathing treatments, IV antibiotics and IV solumedrol Problem: Acute (3) Hypoxia Assessment: continue with O2 via NC Problem: Acute (4) Hyponatremia Assessment: likely hypotonic, euvolemic hyponatremia likely pulmonary etiology. Problem: Acute (5) Hypertension Problem: Chronic Qualifiers: Hypertension type: essential hypertension Qualified Code(s): I10 - Essential (primary) hypertension (6) Hypothyroidism Problem: Chronic Qualifiers: Hypothyroidism type: acquired Qualified Code(s): E03.9 - Hypothyroidism, unspecified
[2018-10-14] MEDS ORDERED: LORATADINE 10 MG TABLET PO PRN (17:30)
[2018-10-14] MEDS: ALBUTEROL SULFATE/IPRATROPIUM 3 ML NEBU IH SCH ×2 (18:06→22:16)
[2018-10-14] MEDS: GABAPENTIN 100 MG CAPSULE PO SCH (18:41)
[2018-10-14] MEDS: ALPRAZolam 0.25 MG TABLET PO SCH (20:08)
[2018-10-14] MEDS: METHYLPREDNISOLONE SOD SUCC/PF 125 MG/2 ML VIAL IV SCH (20:08)
[2018-10-15] MEDS: ALBUTEROL SULFATE/IPRATROPIUM 3 ML NEBU IH SCH ×6 (02:24→22:07)
[2018-10-15] MEDS: ALPRAZolam 0.25 MG TABLET PO PRN ×2 (02:31→10:14)
[2018-10-15] MEDS: ACETAMINOPHEN 325 MG TABLET PO PRN ×3 (02:32→23:45)
[2018-10-15] MEDS: METHYLPREDNISOLONE SOD SUCC/PF 125 MG/2 ML VIAL IV SCH ×4 (02:33→23:44)
[2018-10-15] MEDS: LEVOTHYROXINE SODIUM 25 MCG TABLET PO SCH (06:50)
[2018-10-15] MEDS ORDERED: PANTOPRAZOLE SODIUM 40 MG TABLET.EC PO PRN (07:00)
[2018-10-15] MEDS ORDERED: LEVOFLOXACIN 500 MG TABLET PO SCH (09:00)
[2018-10-15] MEDS ORDERED: HYDROCHLOROTHIAZIDE 12.5 MG CAPSULE PO SCH (09:00)
[2018-10-15] MEDS: NORMAL SALINE 1,000 ML IV PRN ×2 (09:52→21:42)
[2018-10-15] MEDS: Fesoterodine Fumarate [Toviaz] 4 MG PO SCH (09:52)
[2018-10-15] MEDS: CALCIUM CARBONATE/VITAMIN D3 1 TAB TABLET PO SCH (09:53)
[2018-10-15] MEDS: LOSARTAN POTASSIUM 50 MG TABLET PO SCH (09:53)
[2018-10-15] MEDS: GABAPENTIN 100 MG CAPSULE PO SCH (10:00)
[2018-10-15 10:13] LABS: Anion Gap 11.1 mmol/L (6.8-13.8); BUN/Creatinine Ratio 14.9 (9.0-21.6); Calcium * 9.4 mg/dL (7.9-10.9); Carbon Dioxide 30.9 mmol/L (24-32.6); Estimated Creat Clear 41.4
[2018-10-15] MEDS: ENOXAPARIN SODIUM 40 MG/0.4 ML SYRG SC SCH (10:14)
[2018-10-15] MEDS ORDERED: ALPRAZolam 0.25 MG TABLET PO ONE (14:19)
[2018-10-15] MEDS ORDERED: ACETAMINOPHEN 500 MG TABLET PO ONE (14:20)
--- NOTE | 2018-10-15 16:25 | PN ---
Subjective - Date and Time Seen Date: 10/15/18 Time: 08:45 Subjective Narrative: Patient seen and examined at bedside. No acute issues overnight. Patient c/o feeling very congested in her head and feels like she needs to plug her nose and blow to get her ears to pop. Objective - Review of Systems Generalized/Overall Review: Reports: Weakness, Fatigue EENTM: Reports: Nose Congestion Respiratory: Reports: Cough, Shortness of Breath, Wheezing Cardiac: Reports: No Symptoms Reported. Denies: Chest Pain, Edema Abdominal: Reports: No Symptoms Reported Genitourinary Symptoms: Reports: No Symptoms Reported Neurological: Reports: Headache, Anxiety, Tremors - secondary to steroids Misc: All systems neg except as marked - Vitals Vitals: Last Vital Signs Temp 36.6 C 10/15/18 15:57 Pulse 126 H 10/15/18 15:57 Resp 22 H 10/15/18 15:57 BP 142/75 10/15/18 15:57 Pulse Ox 94 10/15/18 15:57 - Abnormal Lab Findings Abnormal Lab Findings: Abnormal Lab Results 10/15/18 10/15/18 10/15/18 Range/Units 09:40 09:40 11:14 Sodium 129 L (132-142) mmol/L Chloride 91 L (97-106) mmol/L Random Glucose 182 H D (70-110) mg/dL B-Natriuretic Peptide 1130 H (5-325) pg/mL Procalcitonin Less than 0.05 L (0.05-0.50) ng/mL Ur Random Creatinine 34.8 L (60-200) mg/dL Ur Random Sodium 19 L (20-110) mmol/L - Exam Constitutional: Present: Alert, Oriented x3, Cooperative, No distress, Other - Appears acute on chronically ill, elderly, frail ENT Exam: Present: hearing grossly normal, nasal congestion, dry mucous membranes Neck: Present: normal inspection Respiratory: Present: no respiratory distress, decreased breath sounds, expiration (prolonged), other - Diminished air movement, no wheezes appreciated Cardiovascular/Chest: Present: regular rate, rhythm, diastolic murmur, systolic murmur Abdomen: Present: soft, nontender, nondistended, hypoactive Extremity: Present: normal inspection, no pedal edema Skin Exam: Present: normal color, warm/dry Neurologic: Present: no motor/sensory deficits, alert, normal mood/affect, oriented x 3, other - tremulous especially in hands secondary to steroids Appearance: Present: appropriate appearance, appropriate insight, neat, no memory impairment Eye contact: Present: cooperative, good eye contact, normal speech Thoughts: Present: normal thought pattern, no apparent hallucination Assessment/Plan Plan Narrative: IMPRESSION & PLAN: AECOPD -Continue IV steroids for the next 24 hours with plans to then transition to oral Prednisone -Continue supplemental oxygen and titrate to SpO2 88-92% -Continue [id number] neb treatments Hyponatremia -Most likely pre-renal secondary to poor PO intake. -Further work-up ordered including urine sodium, urine creatinine, urine osmolality and serum osmolality -Start IVF with NS @ 125 cc/hr -Recheck BMP later today and again in the AM Leukocytosis -Secondary to steroids -Procalcitonin ordered Sinus Infection/Congestion -Start nasal spray decongestant -Continue IV ceftriaxone with plans to switch to Cefdinir at discharge -Continue humidified oxygen via [place] DISPOSITION: Patient will need to remain in the hospital for likely the next 2-3 days for ongoing evaluation and treatment/management, especially of the hyponatremia as we cannot correct her sodium level too quickly. - Problems/Diagnosis (1) Hyponatremia Problem: Acute (2) Acute exacerbation of chronic obstructive pulmonary disease (COPD) Problem: Acute (3) Leukocytosis Problem: Acute (4) Sinus infection Problem: Acute (5) Chronic respiratory failure with hypoxia Problem: Chronic
[2018-10-15] MEDS: ALPRAZolam 0.25 MG TABLET PO SCH ×2 (16:45→23:44)
[2018-10-15 19:37] LABS: Anion Gap 8.5 mmol/L (6.8-13.8); BUN/Creatinine Ratio 19.8 (9.0-21.6); Calcium * 8.6 mg/dL (7.9-10.9); Carbon Dioxide 31.2 mmol/L (24-32.6); Estimated Creat Clear 42.8; Potassium 3.7 mmol/L (3.4-4.6)
[2018-10-15] MEDS: AZELASTINE HCL 200 SPRAY INHALER NS SCH (23:43)
[2018-10-15] MEDS: LORATADINE 10 MG TABLET PO SCH (23:44)
[2018-10-16] MEDS: ALPRAZolam 0.25 MG TABLET PO SCH ×5 (02:29→23:17)
[2018-10-16] MEDS: ALBUTEROL SULFATE/IPRATROPIUM 3 ML NEBU IH SCH ×7 (02:57→22:06)
[2018-10-16] MEDS: METHYLPREDNISOLONE SOD SUCC/PF 125 MG/2 ML VIAL IV SCH ×2 (04:17→09:11)
[2018-10-16 05:31] LABS: Hemoglobin 10.6 gm/dL (12.5-16.0); Mean Cell Volume 93.8 fl (78-100); Mean Corpuscular Hemoglobin 31.1 pg (27-31); Mean Corpuscular Hgb Conc 33.1 g/dl (32-36); Mean Platelet Volume 8.8 fl (8-12.5); Neutrophil # 14.9 K/mm3 (1.3-6.0); Neutrophil % 91.2 % (42-75.0); Platelet Count 272 K/mm3 (150-450); Red Blood Count 3.41 M/mm3 (4.2-5.4); Red Cell Distribution Width 14.2 % (11.5-14.0); White Blood Count 16.3 K/mm3 (4.0-10.5)
[2018-10-16 05:43] LABS: Albumin * 2.7 gm/dl (3.4-5.0); Anion Gap 6.5 mmol/L (6.8-13.8); BUN/Creatinine Ratio 25.4 (9.0-21.6); Bilirubin, Total 0.1 mg/dL (0.0-1.1); Ca. Corrected For Albumin 9.3 mg/dL (8.4-10.2); Calcium * 8.6 mg/dL (7.9-10.9); Carbon Dioxide 33.1 mmol/L (24-32.6); Potassium 3.6 mmol/L (3.4-4.6); Total Protein 6.3 gm/dL (6.2-8.2)
[2018-10-16] MEDS: LEVOTHYROXINE SODIUM 25 MCG TABLET PO SCH (07:13)
[2018-10-16] MEDS: PANTOPRAZOLE SODIUM 40 MG TABLET.EC PO SCH (07:13)
[2018-10-16] MEDS: AZELASTINE HCL 200 SPRAY INHALER NS SCH ×2 (08:20→20:22)
[2018-10-16] MEDS: CALCIUM CARBONATE/VITAMIN D3 1 TAB TABLET PO SCH (08:21)
[2018-10-16] MEDS: GABAPENTIN 100 MG CAPSULE PO SCH (08:22)
[2018-10-16] MEDS: ACETAMINOPHEN 325 MG TABLET PO PRN ×2 (08:24→23:13)
[2018-10-16] MEDS: LOSARTAN POTASSIUM 50 MG TABLET PO SCH (08:26)
[2018-10-16] MEDS: Fesoterodine Fumarate [Toviaz] 4 MG PO SCH (08:28)
[2018-10-16] MEDS: HYDROCHLOROTHIAZIDE 12.5 MG CAPSULE PO SCH (09:29)
[2018-10-16 09:52] LABS: Urine Bilirubin Negative (NEGATIVE); Urine Blood Negative /ul (NEGATIVE); Urine Ketone Negative (NEGATIVE); Urine Nitrite Negative (NEGATIVE); Urine Protein Negative (NEGATIVE); Urine Urobilinogen Normal (NORMAL)
[2018-10-16] MEDS: ENOXAPARIN SODIUM 40 MG/0.4 ML SYRG SC SCH (10:07)
[2018-10-16 10:09] LABS: Urine Appearance Clear (CLEAR); Urine Bacteria None Seen; Urine Color Yellow; Urine RBC 0-5 /hpf (0-5); Urine WBC 0-5 /hpf (0-5)
[2018-10-16] MEDS ORDERED: Fesoterodine Fumarate [Toviaz] 4 MG PO SCH (17:00)
[2018-10-16] MEDS: LORATADINE 10 MG TABLET PO SCH (23:16)
[2018-10-17] MEDS: ALPRAZolam 0.25 MG TABLET PO SCH ×2 (00:10→10:02)
[2018-10-17] MEDS: ALBUTEROL SULFATE/IPRATROPIUM 3 ML NEBU IH SCH ×3 (04:00→11:44)
[2018-10-17] MEDS: ACETAMINOPHEN 325 MG TABLET PO PRN (05:16)
[2018-10-17] MEDS: LEVOTHYROXINE SODIUM 25 MCG TABLET PO SCH (06:46)
[2018-10-17] MEDS: PANTOPRAZOLE SODIUM 40 MG TABLET.EC PO SCH (06:46)
[2018-10-17] MEDS ORDERED: predniSONE 20 MG TABLET PO SCH (09:00)
[2018-10-17 09:01] LABS: Anion Gap 8.9 mmol/L (6.8-13.8); Calcium * 9.2 mg/dL (7.9-10.9); Carbon Dioxide 35.8 mmol/L (24-32.6); Estimated Creat Clear 42.3; Potassium 3.7 mmol/L (3.4-4.6)
[2018-10-17] MEDS: AZELASTINE HCL 200 SPRAY INHALER NS SCH (10:02)
[2018-10-17] MEDS: LOSARTAN POTASSIUM 50 MG TABLET PO SCH (10:02)
[2018-10-17] MEDS: GABAPENTIN 100 MG CAPSULE PO SCH (10:03)
[2018-10-17] MEDS: CALCIUM CARBONATE/VITAMIN D3 1 TAB TABLET PO SCH (10:04)
[2018-10-17] MEDS: HYDROCHLOROTHIAZIDE 12.5 MG CAPSULE PO SCH (10:04)
[2018-10-17] MEDS: ENOXAPARIN SODIUM 40 MG/0.4 ML SYRG SC SCH (10:05)
--- NOTE | 2018-10-17 10:31 | DS ---
(1) Acute exacerbation of chronic obstructive pulmonary disease (COPD) Problem: Acute (2) Hyponatremia Problem: Acute (3) Anxiety Problem: Chronic (4) Leukocytosis Problem: Acute (5) Sinus infection Problem: Acute Description of Stay: ADMISSION DATE: 10/14/2018 DISCHARGE DATE: 10/17/[address] Pierre: Amador Arroyo, is 73-year-old white female, patient of Dr. Penaloza, with past medical history of COPD, hypertension, hypothyroidism, osteoporosis, who was admitted on 10/14/2018 because of increasing shortness of breath. For the last 2 weeks the patient has been having increasing shortness of breath associated with cough productive of yellowish phlegm. She denied any fever but admitted to having the chills. Today her shortness of breath was worst and so she went or emergency room where she was found to be hypoxic in the low 80% saturation espec ially with exertion. Her white blood cell count was slightly elevated , Sodium of 123 and her chest x-ray showed no acute cardiopulmonary findings except for chronic changes. She was then admitted for acute COPD exacerbation. PROBLEM BASED HOSPITAL COURSE: AECOPD -Patient treated aggressively with IV steroids for the first 2 days of her hospital stay and she was then transitioned to oral Prednisone. -Continue supplemental oxygen and titrate to SpO2 88-92%. Patient discharged on her home requirements of 2.5L via [place]. -Patient treated with oazdvp-[id number]-[id number] neb treatments during her stay and she was instructed to continue these after discharge. Hyponatremia -Pre-renal secondary to poor PO intake -Patients sodium level responded very well to IVF hydration -IVFs discontinued >24 hours prior to discharge and recheck sodium level remains WNL at the time of discharge Leukocytosis -Secondary to steroids -Procalcitonin unremarkable Sinus Infection/Congestion -Continue nasal spray decongestant at discharge. Rx sent to [facility]. -Patient treated with IV ceftriaxone during her admission and this was transitioned to oral Cefdinir at discharge. Heart Murmur -2D echo completed during admission with results below DISPOSTION: Patient discharged home in stable condition. Orders given to resume [facility] home health care services at discharge. FOLLOW-UP APPOINTMENTS: -PCP, Dr. Penaloza, next week -Resume [facility] services after discharge NEW OR CHANGED MEDICATIONS: -Prednisone 20mg PO daily X 7 days then 10mg X 7 days then stop -Cefdinir 300mg PO BID X 5 days -HCTZ 12.5mg PO daily -Azelastine HCl [Astepro Nasal [place]] 2 spray NS BID DISCONTINUED MEDICATIONS: None RADIOLOGY REPORTS: PA and lateral CXR on 10/14/2018: Findings: There is scarring or fibrosis in both upper lobes. There is underlying emphysema. Heart size and vascularity appear within normal limits. Lung tamez show no focal infiltrates or effusions. IMPRESSION: CHRONIC FINDINGS DISCUSSED. NO ACUTE CARDIOPULMONARY DISEASE OTHERWISE IDENTIFIED. Complete 2D echocardiogram on 10/16/2018: Left Ventricle: Normal size. Moderate concentric LVH. Hyperdynamic. EF >55%. Wall motion normal. Right Ventricle: Not well visualized. Atria: Left atrial size normal. Right atrium not well visualized. Mitral Valve: Findings consistent with diastolic dysfunction. Pulmonary wedge pressure >20 mmHg. Mild to moderate mitral annular calcification. Mitral leaflets appear thickened, hooded, and/or redundant, consistent with myxomatous degeneration. No stenosis. No regurgitation. Tricuspid Valve: No stenosis. Mild regurgitation. Pulmonary hypertension. RV systolic pressure elevated at 62mmHg. Aortic Valve: Mild stenosis. No regurgitation. Pulmonic Valve: Not well visualized. Great Vessels: Inferior vena cava, superior vena cava, and hepatic veins normal. Pericardium/Pleural: No pericardial effusion. Procedures Performed: none Results and Findings: Pending Mircobiology Results 10/14/18 20:49 Blood Blood Culture - Preliminary NO GROWTH AFTER 48 HOURS Lab Pending Results 10/14/18 14:26: pCO2 41.7, pO2 73.9 L, HCO3 27.6, Total CO2 28.8 H, Base Excess 3.1 H, ABG pH 7.44, ABG O2 Sat (Measured) 95.3 10/14/18 14:28: WBC 10.9 H, RBC 3.92 L, Hgb 12.0 L, Hct 36.8 L, MCV 93.9, MCH 30.6, MCHC 32.6, RDW 13.8, Plt Count 275, MPV 8.2, Immature Gran % (Auto) 3.70 H, Immature Gran # (Auto) 0.40 H, Neutrophils % 72.2, Lymphocytes % 6.8 L, Monocytes % 9.7 H, Eosinophils % 6.9 H, Basophils % 0.7, Nucleated RBC % 0.0, Neutrophils # 7.9 H, Lymphocytes # 0.74 L, Monocytes # 1.1 H, Eosinophils # 0.8 H, Absolute Basophils 0.1 10/14/18 14:28: Sodium 123 L, Plasma Sodium 123 L, Potassium 4.4, Chloride 87 L, Carbon Dioxide 33.0 H, Anion Gap 7.4, BUN 17, Creatinine 0.74, Est GFR (Non-Af Amer) 82, BUN/Creatinine Ratio 23.0 H, Random Glucose 110, Calcium 9.1, Calcium Adj for Albumin 9.3, Magnesium 1.8, Total Bilirubin 0.5, AST 18, ALT 16 L, Alkaline Phosphatase 68, Troponin I Less than 0.017, B-Natriuretic Peptide 1176 H, Total Protein 7.4, Albumin 3.3 L 10/15/18 09:40: Sodium 129 L, Plasma Sodium 130, Potassium 4.0, Chloride 91 L, Carbon Dioxide 30.9, Anion Gap 11.1, BUN 14, Creatinine 0.94, Est GFR (Non-Af Amer) 62 D, BUN/Creatinine Ratio 14.9, Random Glucose 182 H D, Calcium 9.4, B- Natriuretic Peptide 1130 H 10/15/18 09:40: Procalcitonin Less than 0.05 L 10/15/18 09:40: Serum Osmolality 271 L 10/15/18 11:04: Urine Color Yellow, Urine Appearance Clear, Urine pH 7.0, Ur Specific [place] 1.010, Urine Protein Negative, Urine Glucose (UA) 100 H, Urine Ketones Negative, Urine Blood Negative, Urine Nitrate Negative, Urine Bilirubin Negative, Urine Urobilinogen Normal, Ur Leukocyte Esterase Negative, Urine RBC 0-5, Urine WBC 0-5, Ur Epithelial Cells 5-10 H, Urine Bacteria None seen, Urine Culture Comments No culture indicated 10/15/18 11:14: Ur Random Creatinine 34.8 L, Ur Random Sodium 19 L 10/15/18 11:14: Urine Osmolality 294 10/15/18 19:23: Sodium 130 L, Plasma Sodium 132, Potassium 3.7, Chloride 94 L, Carbon Dioxide 31.2, Anion Gap 8.5, BUN 18, Creatinine 0.91, Est GFR (Non-Af Amer) 65, BUN/Creatinine Ratio 19.8, Random Glucose 202 H, Calcium 8.6 10/16/18 05:05: WBC 16.3 H D, RBC 3.41 L, Hgb 10.6 L, Hct 32.0 L, MCV 93.8, MCH 31.1 H, MCHC 33.1, RDW 14.2 H, Plt Count 272, MPV 8.8, Immature Gran % (Auto) 1.40 H, Immature Gran # (Auto) 0.23 H, Neutrophils % 91.2 H, Lymphocytes % 2.5 L, Monocytes % 4.8, Eosinophils % 0.0, Basophils % 0.1, Nucleated RBC % 0.0, Neutrophils # 14.9 H, Lymphocytes # 0.41 L, Monocytes # 0.8, Eosinophils # 0.0, Absolute Basophils 0.0 10/16/18 05:05: Sodium 135, Plasma Sodium 136, Potassium 3.6, Chloride 99, Carbon Dioxide 33.1 H, Anion Gap 6.5 L, BUN 18, Creatinine 0.71, Est GFR (Non-Af Amer) 86 D, BUN/Creatinine Ratio 25.4 H, Random Glucose 164 H, Calcium 8.6, Calcium Adj for Albumin 9.3, Total Bilirubin 0.1, AST 17, ALT 17 L, Alkaline Phosphatase 54, B-Natriuretic Peptide 1830 H, Total Protein 6.3, Albumin 2.7 L 10/17/18 08:54: Sodium 139, Plasma Sodium 139, Potassium 3.7, Chloride 98, Carbon Dioxide 35.8 H, Anion Gap 8.9, BUN 23, Creatinine 0.92, Est GFR (Non-Af Amer) 64 D, BUN/Creatinine Ratio 25.0 H, Random Glucose 104 D, Calcium 9.2 Discharge Location: Home Disposition: Home Health Service [facility] Agency: [facility] Home Health Condition: Stable Discharge Activity: Activity as tolerated Discharge Diet: General/regular food Referrals: Victoria Penaloza DO [Primary Care Provider] - Problem Oriented Discharge Instructions to Patient/Family: Chronic Obstructive Pulmonary Disease, [id number] Additional Patient Instructions (free text): -Please resume [facility] home health services after discharge -Follow-up with Dr. Penaloza on October 23 at 10:15. Prescriptions (Any new or edited meds): Azelastine HCl [Astepro Nasal [place]] 2 spray NS BID #1 inhaler Cefdinir 300 mg PO BID 5 Days #10 capsule Hydrochlorothiazide [Microzide] 12.5 mg PO DAILY #30 capsule predniSONE [Prednisone] See Taper PO DAILY 5 Days tab Complete Home Medications List: Complete Home Medication List: Levothyroxine Sodium [Synthroid] 25 mcg PO DAILY 04/14/15 Calcium Carbonate/Vitamin D3 [Calcium 500-Vit D3 400 Tablet] 1 tab PO DAILY 07/01/16 Albuterol Sulfate/Ipratropium [Duoneb 2.5-0.5MG/3ML Soln] 3 ml INHALATION Q4H #1 nebu 07/19/16 Omeprazole 40 mg PO PRN PRN 10/20/17 losartan 25 mg tablet 25 mg PO DAILY #30 tab 07/24/18 Fesoterodine Fumarate [Toviaz] 4 mg PO DAILY 08/21/18 gabapentin 100 mg capsule 100 mg PO DAILY #30 cap 09/23/18 alprazolam 0.25 mg tablet See Rx Instructions PO HS #90 tab 10/02/18 Budesonide/Formoterol Fumarate [Symbicort 160-4.5 Mcg Inhaler] 2 puff IH BID 10/14/18 Loratadine 10 mg PO DAILY PRN 10/14/18 Azelastine HCl [Astepro Nasal [place]] 2 spray NS BID #1 inhaler 10/17/18 Cefdinir 300 mg PO BID 5 Days #10 capsule 10/17/18 Hydrochlorothiazide [Microzide] 12.5 mg PO DAILY #30 capsule 10/17/18 predniSONE [Prednisone] See Taper PO DAILY 5 Days tab 10/17/18
[2018-10-17 11:40] VITALS: BP 159/82
--- NOTE | 2018-10-17 15:27 | ECHO ---
This report is available in the EMR
--- NOTE | 2018-10-18 14:14 | PN ---
Subjective - Date and Time Seen Date: 10/16/18 Time: 08:45 Subjective Narrative: Patient seen and examined at bedside. No acute issues overnight. Patient states that she feels like she is getting a bit stronger and better each day. Objective - Review of Systems Generalized/Overall Review: Reports: Weakness, Fatigue. Denies: Chills, Fever Respiratory: Reports: Cough, Shortness of Breath, Wheezing Cardiac: Denies: Chest Pain Abdominal: Reports: No Symptoms Reported Genitourinary Symptoms: Reports: No Symptoms Reported Neurological: Reports: Headache, Anxiety, Tremors - secondary to steroids Misc: All systems neg except as marked - Vitals Vitals: Last Vital Signs Temp 36.5 C 10/17/18 11:39 Pulse 117 H 10/17/18 11:54 Resp 20 10/17/18 11:54 BP 159/82 H 10/17/18 11:39 Pulse Ox 96 10/17/18 11:44 - Exam Constitutional: Present: Alert, Oriented x3, Cooperative, No distress, Other - Appears acute on chronically ill, elderly, frail ENT Exam: Present: moist mucous membranes Neck: Present: normal inspection Respiratory: Present: no respiratory distress, no accessory muscle use, decreased breath sounds, expiration (prolonged), other - Diminished air movement with scattered diffuse wheezes Cardiovascular/Chest: Present: regular rate, rhythm, no edema Abdomen: Present: soft, nontender, nondistended, hypoactive Extremity: Present: normal inspection, no pedal edema Skin Exam: Present: normal color, warm/dry Neurologic: Present: no motor/sensory deficits, alert, normal mood/affect, oriented x 3, other - Temors, especially in hands secondary to high dose steroids Appearance: Present: appropriate appearance, appropriate insight, neat, no memory impairment Eye contact: Present: cooperative, good eye contact, normal speech Thoughts: Present: normal thought pattern, no apparent hallucination Assessment/Plan Plan Narrative: IMPRESSION & PLAN: AECOPD -Discontinue IV steroids and transition to oral Prednisone -Continue supplemental oxygen and titrate to SpO2 88-92% -Continue gkcjng-mgk-kyjof neb treatments Hyponatremia -Pre-renal secondary to poor PO intake -Patients sodium level responded very well to IVF hydration -Discontinue IVF hydration today and recheck sodium level in the AM to make sure the patient is able to keep her sodium level WNL on her own Leukocytosis -Secondary to steroids -Procalcitonin unremarkable Sinus Infection/Congestion -Continue nasal spray decongestant -Continue IV ceftriaxone with plans to switch to Cefdinir at discharge -Continue humidified oxygen via [place] DISPOSITION: We will recheck labs in the AM and as long as the patient's sodium level remains WNL and she is clinically stable, we will plan to discharge her home tomorrow and will resume [facility] services at discharge. - Problems/Diagnosis (1) Acute exacerbation of chronic obstructive pulmonary disease (COPD) Problem: Acute (2) Hyponatremia Problem: Acute (3) Sinus infection Problem: Acute (4) Leukocytosis Problem: Acute (5) Chronic respiratory failure with hypoxia Problem: Chronic (6) Anxiety Problem: Chronic
== END 2018-10-17 12:27 | disposition home health service (06) | DRG 189 ==
LOC: ER 14:03 → MS 15:53
PROVIDERS: ADMIT Internal Medicine; ATTEND Internal Medicine
CPT/HCPCS: 36415; 36600; 71020; 71046; 80048; 80053; 81001; 82570; 82803; 83519; 83735; 83880; 83930; 83935; 84145; 84300; 84484; 85025; 87040; 93005; 93306; 94640; 94664; 94760; 96374; 97162; 99285

== ENCOUNTER 2018-10-22 11:35 | Observation (INO) | payer MEDICAID, MEDICARE ==
--- NOTE | 2018-10-22 11:51 | ERNOTE ---
Dyspnea - General Presenting Symptoms: shortness of breath Time Seen by Provider: 10/22/18 11:39 Source: patient Exam Limitations: no limitations - Immun/Allergies/Home Medications Immunizations: IMMUNIZATION HX Immunizations Up to Date Yes History of Influenza Vaccine Yes Hx Pneumococcal Vaccination Yes Allergies/Adverse Reactions: Allergies telithromycin [From KETEK] Allergy (Mild, Verified 10/22/18 11:48) unknown amlodipine besylate [From Norvasc] Adverse Reaction (Mild, Verified 10/22/18 11:48) does not work azithromycin [From Zithromax] Adverse Reaction (Mild, Verified 10/22/18 11:48) gastritis cephalexin Adverse Reaction (Mild, Verified 10/22/18 11:48) Diarrhea olopatadine HCl [From Patanase] Adverse Reaction (Mild, Verified 10/22/18 11:48) dry nose paroxetine HCl [From Paxil] Adverse Reaction (Mild, Verified 10/22/18 11:48) GI upset, diarrhea potassium clavulanate [From Augmentin] Adverse Reaction (Mild, Verified 10/22/18 11:48) Nausea sulfamethoxazole [From Bactrim] Adverse Reaction (Mild, Verified 10/22/18 11:48) Other tramadol Adverse Reaction (Mild, Verified 10/22/18 11:48) Nausea trimethoprim [From Bactrim] Adverse Reaction (Mild, Verified 10/22/18 11:48) Other glycopyrrolate [From [place] Magnair Starter] Adverse Reaction (Verified 10/22/18 11:48) blood in sputum Home Medications: HOME MEDICATIONS Levothyroxine Sodium [Synthroid] 25 mcg PO DAILY 04/14/15 [Last Taken Unknown] Calcium Carbonate/Vitamin D3 [Calcium 500-Vit D3 400 Tablet] 1 tab PO DAILY 07/01/16 [Last Taken 06/30/16] Albuterol Sulfate/Ipratropium [Duoneb 2.5-0.5MG/3ML Soln] 3 ml INHALATION Q4H #1 nebu 07/19/16 [Last Taken Unknown] Omeprazole 40 mg PO PRN PRN 10/20/17 [Last Taken Unknown] losartan 25 mg tablet 25 mg PO DAILY #30 tab 07/24/18 [Last Taken Unknown] Fesoterodine Fumarate [Toviaz] 4 mg PO DAILY 08/21/18 [Last Taken Unknown] gabapentin 100 mg capsule 100 mg PO DAILY #30 cap 09/23/18 [Last Taken Unknown] alprazolam 0.25 mg tablet See Rx Instructions PO HS #90 tab 10/02/18 [Last Taken Unknown] Budesonide/Formoterol Fumarate [Symbicort 160-4.5 Mcg Inhaler] 2 puff IH BID 10/14/18 [Last Taken Unknown] Loratadine 10 mg PO DAILY PRN 10/14/18 [Last Taken Unknown] Azelastine HCl [Astepro Nasal [place]] 2 spray NS BID #1 inhaler 10/17/18 [Last Taken Unknown] Hydrochlorothiazide [Microzide] 12.5 mg PO DAILY #30 capsule 10/17/18 [Last Taken Unknown] predniSONE [Prednisone] See Taper PO DAILY 5 Days tab 10/17/18 [Last Taken Unknown] furosemide 40 mg tablet 40 mg PO DAILY #30 tab 10/22/18 [Last Taken Unknown] potassium citrate ER 10 mEq (1,080 mg) tablet,extended release 20 meq PO DAILY #60 tab 10/22/18 [Last Taken Unknown] - History of Present Illness Narrative: Patient has a history of COPD, is on 2 1/2 liter home O2. She was admitted for COPD exacerbation 10/14-10/17, is still on prednisone 40mg, just finished cefdinir. She felt that overall she was getting better and a little stronger. This morning around 04:00 she got acutely more short of breath, has some phlegm but is unable to cough it up, denies URI symptoms. She called Dr Penaloza's office and was told that they were going to call [facility] her as she was concerned that she might have retained fluid as she has had more ankle swelling, but then decided to come to the ER as it was hard to breathe Date (Duration): 10/22/18 Time (Timing): 04:00 Treatment BUILDING SPECIALIST: by patient, paramedics, albuterol Initiating event: Denies: upper resp illness, out of meds Frequency of episodes: Reports: frequent episodes Modifying Factors - (Improves): Reports: albuterol, rest Modifying Factors (Worsens): Reports: activity Associated Symptoms-Dyspnea: Reports: cough. Denies: fever/chills, chest pain/discomfort, lightheadedness Prior Treatment: Reports: recently seen. Denies: currently on antibiotics Review of Systems - Review of Systems Constitutional: Present: recent illness. Absent: chills ENT: Absent: nose congestion, sore throat Respiratory: Present: shortness of breath, cough Cardiology: Absent: chest pain Gastrointestinal/Abdominal: Absent: nausea, vomiting, abdominal pain Genitourinary: Present: no symptoms reported Musculoskeletal: Present: no symptoms reported Skin: Absent: rash Neurological: Present: headache Medical History (Last Reviewed 10/22/18 @ 12:05 by Yulissa Li MD) Neuropathy (Acute) Raynauds syndrome (Chronic) Osteoporosis (Chronic) Hypothyroidism (acquired) (Chronic) GERD (gastroesophageal reflux disease) (Chronic) Essential hypertension (Chronic) Depression (Chronic) Chronic respiratory failure with hypoxia (Chronic) COPD (chronic obstructive pulmonary disease) (Chronic) Anxiety (Chronic) COPD (chronic obstructive pulmonary disease) (Chronic) Connective tissue disease Rectocele Surgical History: Surgical History (Last Reviewed 10/22/18 @ 12:05 by Yulissa Li MD) History of abdominal hysterectomy Onset Date: ~1979 History of appendectomy Onset Date: ~1982 History of colonoscopy with polypectomy Onset Date: ~2004 History of dilatation and curettage Onset Date: ~1968 History of oophorectomy Onset Date: ~1979 History of tonsillectomy Onset Date: ~1956 History of tooth extraction Onset Date: ~2008 2002;2012 Dr. Nena acosta extracted 2002 bottom 2012 in [place]. Family History: Family History (Last Reviewed 10/22/18 @ 11:48 by Ansley Hyman RN) Mother Hypertension Grandmother , maternal Diabetes Social History: Preferred Language Brazilian Smoking Status Former smoker Abuse History No History of abuse Psych History Hx of Anxiety,Hx of Depression Alcohol Use none Drug Use none (Last Updated 09/12/18 @ 09:13 by Victoria Penaloza DO) No Social History Section defined Physical Exam - Physical Exam General Appearance: Present: wd/wn, alert, mild distress, anxious Head Exam: Present: normal inspection Respiratory: Present: respiratory distress - speaks in 5-6 words, pursed lip breathing, decreased breath sounds, expiration (prolonged) Cardiovascular/Chest: Present: regular rate, rhythm, no murmur Gastrointestinal/Abdominal: Present: nontender, nondistended, soft Extremity Exam: Present: pedal edema Neurological Exam: Present: alert, oriented, normal mood/affect Skin Exam: Present: normal color, warm/dry Progress - Results and Orders Patient's Lab Results:: I have reviewed the patient's lab results. - Vital Signs Patient's Vital Signs:: I have reviewed the patient's vital signs. Vital Signs: Vital Signs 10/22/18 11:35 10/22/18 11:46 Temperature 36.8 C Pulse Rate 122 H 116 H Respiratory Rate 20 Blood Pressure 205/99 H O2 Sat by Pulse Oximetry 95 - EKG EKG: NSR, other - poor quality, no acute EKG read: Interp. by me - X-Ray X-Ray #1 X-Ray: chest - No acute cardiopulmonary process detected Interpretation: Reviewed by me - Progress/Reassessment Progress Note-Subjective: 10/22/18 12:55 not much better after neb treatment, still severely decreased air movement, still breathing with pursed lips discussed test results with are overall stable, CO2 only slightly higher than before BNP better than with prior admission, questionable how much CHF contributes to SOB 10/22/18 12:[address] Penaloza 10/22/18 13:[address] Durán nurse, Dr Penaloza not available today 10/22/18 13:42 discussed with harsh Goodrich to admit for observation for COPD exacerbation, start levaquin Departure Clinical Impression: Acute exacerbation of chronic obstructive pulmonary disease (COPD) - Departure Disposition: Still a patient Condition: Stable
[2018-10-22 11:57] LABS: Hematocrit 37.9 % (37.0-47.0); Hemoglobin 12.3 gm/dL (12.5-16.0); Mean Cell Volume 95.5 fl (78-100); Mean Corpuscular Hgb Conc 32.5 g/dl (32-36); Mean Platelet Volume 8.4 fl (8-12.5); Neutrophil # 13.8 K/mm3 (1.3-6.0); Neutrophil % 82.9 % (42-75.0); Platelet Count 302 K/mm3 (150-450); Red Blood Count 3.97 M/mm3 (4.2-5.4); Red Cell Distribution Width 14.6 % (11.5-14.0); White Blood Count 16.6 K/mm3 (4.0-10.5)
[2018-10-22 12:16] LABS: ALT 39 U/L (19-67); AST 23 U/L (0-48); Albumin * 3.5 gm/dl (3.4-5.0); Alkaline Phosphatase * 56 U/L (50-170); Anion Gap 9.2 mmol/L (6.8-13.8); BNP * 785 pg/mL (5-325); BUN/Creatinine Ratio 24.7 (9.0-21.6); Bilirubin, Total 0.4 mg/dL (0.0-1.1); Blood Urea Nitrogen 18 mg/dL (3-23); Ca. Corrected For Albumin 9.4 mg/dL (8.4-10.2); Calcium * 9.3 mg/dL (7.9-10.9); Carbon Dioxide 36.6 mmol/L (24-32.6); Chloride 89 mmol/L (97-106); Glucose * 117 mg/dL (70-110); Potassium 3.8 mmol/L (3.4-4.6); Sodium 131 mmol/L (132-142); Total Protein 7.5 gm/dL (6.2-8.2); Troponin I Less than 0.017 ng/mL (0.00-0.10)
[2018-10-22] MEDS ORDERED: METHYLPREDNISOLONE SOD SUCC/PF 40 MG/ML VIAL IV ONE ×2 (13:32)
[2018-10-22] MEDS ORDERED: ALBUTEROL SULFATE 2.5 MG/0.5 ML VIAL.NEB IH PRN (13:58)
[2018-10-22] MEDS ORDERED: LEVOFLOXACIN IN DEXTROSE 5 % 500 MG/100 ML BAG IV SCH (14:00)
[2018-10-22] MEDS: ALBUTEROL SULFATE/IPRATROPIUM 3 ML NEBU IH SCH ×3 (14:36→23:02)
[2018-10-22] MEDS ORDERED: LORATADINE 10 MG TABLET PO PRN (17:44)
[2018-10-22] MEDS ORDERED: ALBUTEROL SULFATE/IPRATROPIUM 3 ML NEBU IH PRN (17:44)
--- NOTE | 2018-10-22 19:40 | HP ---
Chief Complaint - Chief Complaint Date of Service: 10/22/18 Time of Service: 19:29 Chief Complaint: Anxiety, SOB History of Present Illness: 73 year old female with hx of end stage COPD presented to the ER for worsening SOB and anxiety. She was recently seen and tx here for this same issue, being discharged less than 1 week ago on cefdinir and prednisone. She states that she has been monitoring her O2 sats at home and got very concerned when they hit 87% while on her home o2 regimen. She still has a cough but denies fever/chills. She has 2 more days of oral steroids. She also endorsed some increased swelling to her legs, this is significantly improved today per her. She admits that her anxiety is likely making this worse. She received Solu-medrol in the ER as well as started on levaquin. XR of the chest does not show vascular congestion or infiltration-there is chronic COPD changes seen. Her abg shows a mixed acid base disorder where she has a metabolic alkalosis 2/2 a chronic respiratory acidosis. Her BNP is significantly improved from her previous stay (today was around 780, down from 1800+). She is breathing through pursed lips which she states she was taught by RT and this has significantly helped calm her down and improve her breathing. When seeing her in bed this evening, she was very pleasant and in no acute distress. She stated that she was starting to feel better and felt like she was moving air better than she had been all day. She has a hx of COPD, anxiety, htn, Osteoporosis, GERD. Medical History (Last Reviewed 10/22/18 @ 14:55 by Graciela Conner RN) Neuropathy (Acute) Raynauds syndrome (Chronic) Osteoporosis (Chronic) Hypothyroidism (acquired) (Chronic) GERD (gastroesophageal reflux disease) (Chronic) Essential hypertension (Chronic) Depression (Chronic) Chronic respiratory failure with hypoxia (Chronic) COPD (chronic obstructive pulmonary disease) (Chronic) Anxiety (Chronic) COPD (chronic obstructive pulmonary disease) (Chronic) Connective tissue disease Rectocele Surgical History: Surgical History (Last Reviewed 10/22/18 @ 14:55 by Graciela Conner RN) History of abdominal hysterectomy Onset Date: ~1979 History of appendectomy Onset Date: ~1982 History of colonoscopy with polypectomy Onset Date: ~2004 History of dilatation and curettage Onset Date: ~1968 History of oophorectomy Onset Date: ~1979 History of tonsillectomy Onset Date: ~1956 History of tooth extraction Onset Date: ~2008 2002;2012 Dr. Nena acosta extracted 2002 in [place]. Family History: Family History (Last Reviewed 10/22/18 @ 14:55 by Graciela Conner RN) Mother Hypertension Grandmother , maternal Diabetes Social History: Patient Lives/Resources Home Utilized Occupation retired Preferred Language [place]ian Do you have any islam or Yes: [facility] cultural preference? Smoking Status Former smoker Have you smoked in the past 12 Yes months Do you dip or chew tobacco No Abuse History No History of abuse Psych History Hx of Anxiety,Hx of Depression Alcohol Use none Drug Use none (Last Updated 09/12/18 @ 09:13 by Victoria Penaloza DO) No Social History Section defined Review Of Systems (GEN) - Review of Systems Generalized/Overall Review: Present: Weakness, Chills, Fever, Weight gain EENTM: Present: No Symptoms Reported Respiratory: Present: Cough - dry, Shortness of Breath. Absent: Stridor, Wheezing Cardiac: Absent: Chest Pain, Edema, Palpitations Abdominal: Absent: Nausea, Vomiting, Abdominal Pain Genitourinary: Present: No Symptoms Reported Musculoskeletal: Present: No Symptoms Reported Neurological: Present: No Symptoms Reported Skin: Present: No Symptoms Reported Endocrine: Present: No Symptoms Reported Misc: All systems neg except as marked Immunizations: IMMUNIZATION HX Immunizations Up to Date Yes History of Influenza Vaccine Yes Hx Pneumococcal Vaccination Yes Allergies/Adverse Reactions: Allergies Allergy/AdvReac Type Severity Reaction Status Date / Time telithromycin [From KETEK] Allergy Mild unknown Verified 10/22/18 14:55 amlodipine besylate AdvReac Mild does not Verified 10/22/18 14:55 [From Norvasc] work azithromycin [From Zithromax] AdvReac Mild gastritis Verified 10/22/18 14:55 cephalexin AdvReac Mild Diarrhea Verified 10/22/18 14:55 olopatadine HCl AdvReac Mild dry nose Verified 10/22/18 14:55 [From Patanase] paroxetine HCl [From Paxil] AdvReac Mild GI upset, Verified 10/22/18 14:55 diarrhea potassium clavulanate AdvReac Mild Nausea Verified 10/22/18 14:55 [From Augmentin] sulfamethoxazole AdvReac Mild Other Verified 10/22/18 14:55 [From Bactrim] tramadol AdvReac Mild Nausea Verified 10/22/18 14:55 trimethoprim [From Bactrim] AdvReac Mild Other Verified 10/22/18 14:55 glycopyrrolate AdvReac blood in Verified 10/22/18 14:55 [From [address] sputum Starter] Home Medications: HOME MEDICATIONS Levothyroxine Sodium [Synthroid] 25 mcg PO DAILY 04/14/15 [Last Taken 10/22/18 09:00] Calcium Carbonate/Vitamin D3 [Calcium 500-Vit D3 400 Tablet] 1 tab PO DAILY 07/01/16 [Last Taken 10/22/18 09:00] Albuterol Sulfate/Ipratropium [Duoneb 2.5-0.5MG/3ML Soln] 3 ml INHALATION Q4H #1 nebu 07/19/16 [Last Taken 10/22/18 09:00] Omeprazole 40 mg PO PRN PRN 10/20/17 [Last Taken 10/22/18 09:00] losartan 25 mg tablet 25 mg PO DAILY #30 tab 07/24/18 [Last Taken 10/22/18 09:00] Fesoterodine Fumarate [Toviaz] 4 mg PO DAILY 08/21/18 [Last Taken Unknown] gabapentin 100 mg capsule 100 mg PO DAILY #30 cap 09/23/18 [Last Taken 10/22/18 09:00] alprazolam 0.25 mg tablet See Rx Instructions PO HS #90 tab 10/02/18 [Last Taken Unknown] Budesonide/Formoterol Fumarate [Symbicort 160-4.5 Mcg Inhaler] 2 puff IH BID 10/14/18 [Last Taken 10/22/18 09:00] Loratadine 10 mg PO DAILY PRN 10/14/18 [Last Taken 10/22/18 09:00] Azelastine HCl [Astepro Nasal [place]] 2 spray NS BID #1 inhaler 10/17/18 [Last Taken 10/22/18 09:00] Hydrochlorothiazide [Microzide] 12.5 mg PO DAILY #30 capsule 10/17/18 [Last Taken 10/22/18 09:00] predniSONE [Prednisone] See Taper PO DAILY 5 Days tab 10/17/18 [Last Taken 10/22/18 09:00] furosemide 40 mg tablet 40 mg PO DAILY #30 tab 10/22/18 [Last Taken 10/22/18 09:00] potassium citrate ER 10 mEq (1,080 mg) tablet,extended release 20 meq PO DAILY #60 tab 10/22/18 [Last Taken 10/22/18 09:00] Exam - Exam Vital Signs: Vital Signs - Last Taken Temp 36.6 C 10/22/18 14:30 Pulse 108 H 10/22/18 18:23 Resp 22 H 10/22/18 18:23 BP 148/76 10/22/18 14:30 Pulse Ox 95 10/22/18 18:13 Constitutional: Present: Alert, Oriented x3, Cooperative ENT Exam: Present: hearing grossly normal, pharynx normal Eye Exam: bilateral eye: normal inspection, EOMI Neck: Present: non-tender, full range of motion, supple, trachea midline Back Exam: Present: normal inspection, no CVA tenderness Breasts: Present: Exam deferred Respiratory: Present: chest non-tender, decreased breath sounds - diffusely, other - pursed breathing. Absent: crackles, rales, wheezing Cardiovascular/Chest: Present: normal peripheral pulses, regular rate, rhythm, edema - minimal, to jsut above the ankles Abdomen: Present: Normal bowel sounds, soft, nontender /Rectal: Present: Exam deferred Extremity: Present: normal range of motion, non-tender Skin Exam: Present: normal color, warm/dry, no cyanosis Lymphatic: Present: no adenopathy Neurologic: Present: alert, normal mood/affect, oriented x 3 Appearance: Present: appropriate appearance, appropriate insight, disheveled Eye contact: Present: cooperative, good eye contact Thoughts: Present: normal thought pattern, normal mood /affect Diagnostic Studies: Abnormal Lab Results 10/22/18 10/22/18 10/22/18 Range/Units 11:45 11:54 11:54 WBC 16.6 H (4.0-10.5) K/mm3 RBC 3.97 L (4.2-5.4) M/mm3 Hgb 12.3 L (12.5-16.0) gm/dL RDW 14.6 H (11.5-14.0) % Immature Gran % (Auto) 3.60 H (0.001-0.429) % Immature Gran # (Auto) 0.60 H (0.000-0.0310) K/mm3 Neutrophils % 82.9 H (42-75.0) % Lymphocytes % 3.5 L (20-51) % Neutrophils # 13.8 H (1.3-6.0) K/mm3 Lymphocytes # 0.58 L (1.5-3.5) k/mm3 Monocytes # 1.2 H (0.0-1.0) k/mm3 pCO2 45.8 H (32.0-45.0) mmHg pO2 63.7 L (83.0-108.0) mmHg HCO3 32.5 H (21.0-28.0) mmol/L Total CO2 33.9 H (19.0-24.0) mmol/L Base Excess 7.8 H (-2.0-3.0) mmol/L ABG pH 7.47 H (7.35-7.45) ABG O2 Sat (Measured) 93.4 L (94.0-98.0) % Sodium 131 L (132-142) mmol/L Chloride 89 L (97-106) mmol/L Carbon Dioxide 36.6 H (24-32.6) mmol/L BUN/Creatinine Ratio 24.7 H (9.0-21.6) Random Glucose 117 H (70-110) mg/dL B-Natriuretic Peptide 785 H (5-325) pg/mL Laboratory Results WBC 16.6 K/mm3 (4.0-10.5) H 10/22/18 11:54 RBC 3.97 M/mm3 (4.2-5.4) L 10/22/18 11:54 Hgb 12.3 gm/dL (12.5-16.0) L 10/22/18 11:54 Hct 37.9 % (37.0-47.0) 10/22/18 11:54 MCV 95.5 fl (78-100) 10/22/18 11:54 MCH 31.0 pg (27-31) 10/22/18 11:54 MCHC 32.5 g/dl (32-36) 10/22/18 11:54 RDW 14.6 % (11.5-14.0) H 10/22/18 11:54 Plt Count 302 K/mm3 (150-450) 10/22/18 11:54 MPV 8.4 fl (8-12.5) 10/22/18 11:54 Immature Gran % (Auto) 3.60 % (0.001-0.429) H 10/22/18 11:54 Immature Gran # (Auto) 0.60 K/mm3 (0.000-0.0310) H 10/22/18 11:54 Neutrophils % 82.9 % (42-75.0) H 10/22/18 11:54 Lymphocytes % 3.5 % (20-51) L 10/22/18 11:54 Monocytes % 7.2 % (0.0-9) 10/22/18 11:54 Eosinophils % 2.5 % (0.0-3.0) 10/22/18 11:54 Basophils % 0.3 % (0.0-1.0) 10/22/18 11:54 Nucleated RBC % 0.0 k/mm3 (0-1) 10/22/18 11:54 Neutrophils # 13.8 K/mm3 (1.3-6.0) H 10/22/18 11:54 Lymphocytes # 0.58 k/mm3 (1.5-3.5) L 10/22/18 11:54 Monocytes # 1.2 k/mm3 (0.0-1.0) H 10/22/18 11:54 Eosinophils # 0.4 k/mm3 (0.0-0.7) 10/22/18 11:54 Absolute Basophils 0.1 k/mm3 (0.0-0.1) 10/22/18 11:54 pCO2 45.8 mmHg (32.0-45.0) H 10/22/18 11:45 pO2 63.7 mmHg (83.0-108.0) L 10/22/18 11:45 HCO3 32.5 mmol/L (21.0-28.0) H 10/22/18 11:45 Total CO2 33.9 mmol/L (19.0-24.0) H 10/22/18 11:45 Base Excess 7.8 mmol/L (-2.0-3.0) H 10/22/18 11:45 ABG pH 7.47 (7.35-7.45) H 10/22/18 11:45 ABG O2 Sat (Measured) 93.4 % (94.0-98.0) L 10/22/18 11:45 Sodium 131 mmol/L (132-142) L 10/22/18 11:54 Plasma Sodium 131 mmol/L (130-142) 10/22/18 11:54 Potassium 3.8 mmol/L (3.4-4.6) 10/22/18 11:54 Chloride 89 mmol/L (97-106) L 10/22/18 11:54 Carbon Dioxide 36.6 mmol/L (24-32.6) H 10/22/18 11:54 Anion Gap 9.2 mmol/L (6.8-13.8) 10/22/18 11:54 BUN 18 mg/dL (3-23) 10/22/18 11:54 Creatinine 0.73 mg/dL (0.4-1.4) 10/22/18 11:54 Est GFR (Non-Af Amer) 84 mL/min (60-130) D 10/22/18 11:54 BUN/Creatinine Ratio 24.7 (9.0-21.6) H 10/22/18 11:54 Random Glucose 117 mg/dL (70-110) H 10/22/18 11:54 Calcium 9.3 mg/dL (7.9-10.9) 10/22/18 11:54 Calcium Adj for Albumin 9.4 mg/dL (8.4-10.2) 10/22/18 11:54 Total Bilirubin 0.4 mg/dL (0.0-1.1) 10/22/18 11:54 AST 23 U/L (0-48) 10/22/18 11:54 ALT 39 U/L (19-67) 10/22/18 11:54 Alkaline Phosphatase 56 U/L (50-170) 10/22/18 11:54 Troponin I Less than 0.017 ng/mL (0.00-0.10) 10/22/18 11:54 B-Natriuretic Peptide 785 pg/mL (5-325) H 10/22/18 11:54 Total Protein 7.5 gm/dL (6.2-8.2) 10/22/18 11:54 Albumin 3.5 gm/dl (3.4-5.0) 10/22/18 11:54 Influenza Type A Ag Negative (NEGATIVE) 10/22/18 13:15 Influenza Type B Ag Negative (NEGATIVE) 10/22/18 13:15 Assessment/Plan - Narrative Narrative: Patient is stable now, starting to feel better. Will hold off on any more steroids at this time, will restart her daily steroids that she has been on tomorrow morning-to be completed as Dr. Penaloza directed. Will also hold the levaquin at this time. Will continue her home o2 therapy, to be titrated between 88-92%. Resume her chronic COPD medications. Will continue her xanax as directed as this will likely help her significantly. I feel this respiratory issue has been made worse from her anxiety. Elevated WBC likely from recent steroid use as there is no clinical signs of infection. Will restart her other chronic home medications. Will use scds for DVT ppx. Will start her on a regular diet. Likely home tomorrow as long as there is no setbacks overnight. - Assessment/Plan (1) Chronic respiratory failure with hypoxia Problem: Chronic (2) SOB (shortness of breath) Problem: Acute (3) Anxiety Problem: Chronic (4) Hypertension Problem: Chronic Qualifiers: (5) Leukocytosis Problem: Acute
[2018-10-22] MEDS: FLUTICASONE/SALMETEROL 14 PUFF DISK.W.DEV IH SCH (20:13)
[2018-10-22] MEDS: AZELASTINE HCL 200 SPRAY INHALER NS SCH (20:14)
[2018-10-22] MEDS ORDERED: ACETAMINOPHEN 500 MG TABLET ONE (20:43)
[2018-10-22] MEDS: ACETAMINOPHEN 500 MG TABLET PO PRN (20:46)
[2018-10-22] MEDS ORDERED: FESOTERODINE FUMARATE 8 MG PO SCH (21:00)
[2018-10-22] MEDS ORDERED: GABAPENTIN 100 MG CAPSULE PO SCH (21:00)
[2018-10-22] MEDS ORDERED: ALPRAZolam 0.25 MG TABLET PO SCH (21:00)
[2018-10-23] MEDS: ALPRAZolam 0.25 MG TABLET PO PRN ×2 (00:33→08:49)
[2018-10-23] MEDS: ALBUTEROL SULFATE/IPRATROPIUM 3 ML NEBU IH SCH ×6 (04:51→14:05)
[2018-10-23] MEDS: ACETAMINOPHEN 500 MG TABLET PO PRN ×2 (05:57→14:55)
[2018-10-23] MEDS ORDERED: LEVOTHYROXINE SODIUM 25 MCG TABLET PO SCH (07:00)
[2018-10-23] MEDS: FLUTICASONE/SALMETEROL 14 PUFF DISK.W.DEV IH SCH (08:36)
[2018-10-23] MEDS: AZELASTINE HCL 200 SPRAY INHALER NS SCH (08:36)
[2018-10-23] MEDS ORDERED: HYDROCHLOROTHIAZIDE 12.5 MG CAPSULE PO SCH (09:00)
[2018-10-23] MEDS ORDERED: LOSARTAN POTASSIUM 50 MG TABLET PO SCH (09:00)
[2018-10-23] MEDS ORDERED: FUROSEMIDE 40 MG TABLET PO SCH (09:00)
[2018-10-23] MEDS ORDERED: MORPHINE SULFATE 10 MG/0.5 ML SYRINGE PO STA (11:03)
--- NOTE | 2018-10-23 14:14 | DS ---
(1) Anxiety Problem: Chronic (2) COPD (chronic obstructive pulmonary disease) Problem: Chronic Qualifiers: COPD type: chronic bronchitis Chronic bronchitis type: unspecified Qualified Code(s): J42 - Unspecified chronic bronchitis (3) End stage COPD Problem: Chronic (4) Air hunger Diagnosis(s): Acute on chronic Problem: Acute Description of Stay: ADMISSION DATE: 10/22/2018 DISCHARGE DATE: 10/23/[address] Bolanos: 73 year old female with hx of end stage COPD presented to the ER for worsening SOB and anxiety. She was recently seen and tx here for this same issue, being discharged less than 1 week ago on cefdinir and prednisone. She states that she has been monitoring her O2 sats at home and got very concerned when they hit 87% while on her home o2 regimen. She still has a cough but denies fever/chills. She has 2 more days of oral steroids. She also endorsed some increased swelling to her legs, this is significantly improved today per her. She admits that her anxiety is likely making this worse. She received Solu-medrol in the ER as well as started on levaquin. XR of the chest does not show vascular congestion or infiltration-there is chronic COPD changes seen. Her abg shows a mixed acid base disorder where she has a metabolic alkalosis 2/2 a chronic respiratory acidosis. Her BNP is significantly improved from her previous stay (today was around 780, down from 1800+). She is breathing through pursed lips which she states she was taught by RT and this has significantly helped calm her down and improve her breathing. When seeing her in bed this evening, she was very pleasant and in no acute distress. She stated that she was starting to feel better and felt like she was moving air better than she had been all day. She has a hx of COPD, anxiety, htn, Osteoporosis, GERD. HOSPITAL COURSE: The patient has end-stage COPD and was admitted to the hospital secondary to anxiety and air hunger related to her COPD. I have adjusted her medications to see if we can improve her subjective symptoms of SOB and anxiety. She was started on clonazepam 0.5mg BID scheduled. She was also started on oral morphine for air hunger. She tolerated both these medications well and she was discharged home in fair but stable and improved condition when compared to admission. We had another conversation regarding end-of-life care and the patient is adamant that she will NOT go to a detention, even if it is just for rehab/SNF. She wants to remain at home and we will do everything we can to make this happen. She understands that she would benefit from hospice services and she will continue to think about this and we will make this transition once the patient is ready. FOLLOW-UP APPOINTMENTS: -Resume services with [facility] at discharge -Patient instructed to call Dr. Penaloza's office over the next couple days with an update on how she is feeling -Follow-up with Dr. Penaloza within 1 week NEW OR CHANGED MEDICATIONS: -Clonazepam 0.5mg PO BID -Morphine 5mg PO Q2H PRN severe air hunger -Prednisone 20mg PO daily X 1 week then 10mg PO daily X 1 week and then 5mg PO daily which we will likely continue indefinitely DISCONTINUED MEDICATIONS: -None RADIOLOGY REPORTS: PA and lateral CXR on 10/22/2018: Findings: The lungs demonstrate no focal consolidation or acute abnormality. Diffuse emphysematous/COPD change identified. There is no pleural effusion or pneumothorax. Cardiac silhouette and pulmonary vasculature are normal. The osseous structures are within normal limits for age. IMPRESSION: No acute cardiopulmonary process detected Procedures Performed: none Results and Findings: Lab Pending Results 10/22/18 11:45: pCO2 45.8 H, pO2 63.7 L, HCO3 32.5 H, Total CO2 33.9 H, Base Excess 7.8 H, ABG pH 7.47 H, ABG O2 Sat (Measured) 93.4 L 10/22/18 11:54: WBC 16.6 H, RBC 3.97 L, Hgb 12.3 L, Hct 37.9, MCV 95.5, MCH 31.0, MCHC 32.5, RDW 14.6 H, Plt Count 302, MPV 8.4, Immature Gran % (Auto) 3.60 H, Immature Gran # (Auto) 0.60 H, Neutrophils % 82.9 H, Lymphocytes % 3.5 L, Monocytes % 7.2, Eosinophils % 2.5, Basophils % 0.3, Nucleated RBC % 0.0, Neutrophils # 13.8 H, Lymphocytes # 0.58 L, Monocytes # 1.2 H, Eosinophils # 0.4, Absolute Basophils 0.1 12/11/18 11:54: Sodium 131 L, Plasma Sodium 131, Potassium 3.8, Chloride 89 L, Carbon Dioxide 36.6 H, Anion Gap 9.2, BUN 18, Creatinine 0.73, Est GFR (Non-Af Amer) 84 D, BUN/Creatinine Ratio 24.7 H, Random Glucose 117 H, Calcium 9.3, Calcium Adj for Albumin 9.4, Total Bilirubin 0.4, AST 23, ALT 39, Alkaline Phosphatase 56, Troponin I Less than 0.017, B-Natriuretic Peptide 785 H, Total Protein 7.5, Albumin 3.5 10/22/18 13:15: Influenza Type A Ag Negative, Influenza Type B Ag Negative Discharge Location: Home Disposition: Home Health Service Home Health Agency: [facility] Condition: Fair Discharge Activity: Activity as tolerated Discharge Diet: General/regular food Intermediate Therapy: Physicial Therapy, Occupation Therapy Referrals: Victoria Penaloza DO [Primary Care Provider] - Problem Oriented Discharge Instructions to Patient/Family: Chronic Obstructive Pulmonary Disease Exacerbation, [id number] Additional Patient Instructions (free text): Resume services with [facility]. -Patient will call Dr. Penaloza's office over the next couple days with an update on how she is feeling -Follow-up with Dr. Penaloza within 1 week 10/28 at 10:00am. Prescriptions (Any new or edited meds): clonazePAM [Klonopin] 1 mg PO BIDWM #60 tab Morphine Sulfate [Morphine Sulfate Conc. Oral Solution] 5 mg PO Q2H PRN #30 ml PRN Reason: Shortness Of Breath predniSONE [Prednisone] 5 mg PO DAILY #90 tablet Complete Home Medications List: Complete Home Medication List: Levothyroxine Sodium [Synthroid] 25 mcg PO DAILY 04/14/15 Calcium Carbonate/Vitamin D3 [Calcium 500-Vit D3 400 Tablet] 1 tab PO DAILY 07/01/16 Albuterol Sulfate/Ipratropium [Duoneb 2.5-0.5MG/3ML Soln] 3 ml INHALATION Q4H #1 nebu 07/19/16 Omeprazole 40 mg PO PRN PRN 10/20/17 losartan 25 mg tablet 25 mg PO DAILY #30 tab 07/24/18 Fesoterodine Fumarate [Toviaz] 4 mg PO DAILY 08/21/18 gabapentin 100 mg capsule 100 mg PO DAILY #30 cap 09/23/18 Budesonide/Formoterol Fumarate [Symbicort 160-4.5 Mcg Inhaler] 2 puff IH BID 10/14/18 Loratadine 10 mg PO DAILY PRN 10/14/18 Azelastine HCl [Astepro Nasal [place]] 2 spray NS BID #1 inhaler 10/17/18 Hydrochlorothiazide [Microzide] 12.5 mg PO DAILY #30 capsule 10/17/18 predniSONE [Prednisone] See Taper PO DAILY 5 Days tab 10/17/18 potassium citrate ER 10 mEq (1,080 mg) tablet,extended release 20 meq PO DAILY #60 tab 10/22/18 Furosemide [Lasix] 40 mg PO DAILY PRN #30 tablet 10/23/18 Morphine Sulfate [Morphine Sulfate Conc. Oral Solution] 5 mg PO Q2H PRN #30 ml 10/23/18 clonazePAM [Klonopin] 1 mg PO BIDWM #60 tab 10/23/18 guaiFENesin [Mucinex] 600 mg PO BID tablet.sa 10/23/18 predniSONE [Prednisone] 5 mg PO DAILY #90 tablet 10/23/18
[2018-10-23 14:34] VITALS: BP 128/78
[2018-10-23] MEDS ORDERED: clonazePAM 1 MG TABLET PO SCH (17:00)
[2018-10-23] MEDS ORDERED: FESOTERODINE FUMARATE 8 MG PO SCH (21:00)
== END 2018-10-23 15:30 | disposition home health service (06) ==
LOC: MS 11:35 → ER 11:35 → MS 14:10
PROVIDERS: ADMIT Family Medicine; ATTEND Internal Medicine
DX: R06.00 Dyspnea, unspecified
CPT/HCPCS: 36415; 36600; 71020; 71046; 80053; 82803; 83519; 83880; 84484; 85025; 87400; 87449; 93005; 94640; 94664; 94760; 96365; 96374; 96375; 99285; G0378

== ENCOUNTER 2018-10-30 08:16 | Inpatient (IN) | payer MEDICAID, MEDICARE ==
[2018-10-30] MEDS ORDERED: ALBUTEROL SULFATE 2.5 MG/0.5 ML VIAL.NEB IH ONE ×2 (08:42→08:44)
[2018-10-30] MEDS ORDERED: METHYLPREDNISOLONE SOD SUCC/PF 125 MG/2 ML VIAL IV ONE (08:45)
[2018-10-30 09:08] LABS: Hematocrit 39.4 % (37.0-47.0); Hemoglobin 12.5 gm/dL (12.5-16.0); Mean Cell Volume 98.3 fl (78-100); Mean Corpuscular Hemoglobin 31.2 pg (27-31); Mean Corpuscular Hgb Conc 31.7 g/dl (32-36); Mean Platelet Volume 8.5 fl (8-12.5); Neutrophil # 10.5 K/mm3 (1.3-6.0); Neutrophil % 79.1 % (42-75.0); Platelet Count 314 K/mm3 (150-450); Red Blood Count 4.01 M/mm3 (4.2-5.4); Red Cell Distribution Width 14.1 % (11.5-14.0); White Blood Count 13.2 K/mm3 (4.0-10.5)
[2018-10-30 09:24] LABS: BNP * 1194 pg/mL (5-325); Troponin I Less than 0.017 ng/mL (0.00-0.10)
[2018-10-30 09:39] LABS: Albumin * 3.4 gm/dl (3.4-5.0); Anion Gap 5.7 mmol/L (6.8-13.8); BUN/Creatinine Ratio 28.4 (9.0-21.6); Bilirubin, Total 0.4 mg/dL (0.0-1.1); Ca. Corrected For Albumin 10.1 mg/dL (8.4-10.2); Calcium * 9.9 mg/dL (7.9-10.9); Carbon Dioxide 41.4 mmol/L (24-32.6); Potassium 3.1 mmol/L (3.4-4.6); Total Protein 7.5 gm/dL (6.2-8.2)
[2018-10-30] MEDS ORDERED: LORazepam 2 MG/ML DISP.SYRIN IV PRN (10:21)
[2018-10-30] MEDS ORDERED: ACETAMINOPHEN 325 MG TABLET PO PRN (10:21)
[2018-10-30] MEDS ORDERED: ONDANSETRON HCL/PF 2 MG/ML VIAL IV PRN (10:21)
[2018-10-30] MEDS ORDERED: HYDROmorphone HCL 2 MG/ML VIAL IV PRN (10:21)
[2018-10-30] MEDS ORDERED: ALBUTEROL SULFATE 2.5 MG/0.5 ML VIAL.NEB IH PRN (10:21)
--- NOTE | 2018-10-30 10:21 | ERNOTE ---
Dyspnea - Date Date of Service: 10/30/18 - General Presenting Symptoms: shortness of breath, difficulty of breathing, wheezing Time Seen by Provider: 10/30/18 08:41 Source: patient, family Exam Limitations: clinical condition - Immun/Allergies/Home Medications Immunizations: IMMUNIZATION HX Immunizations Up to Date Yes History of Influenza Vaccine Yes Hx Pneumococcal Vaccination Yes Allergies/Adverse Reactions: Allergies telithromycin [From KETEK] Allergy (Mild, Verified 10/30/18 08:26) unknown amlodipine besylate [From Norvasc] Adverse Reaction (Mild, Verified 10/30/18 08:26) does not work azithromycin [From Zithromax] Adverse Reaction (Mild, Verified 10/30/18 08:26) gastritis cephalexin Adverse Reaction (Mild, Verified 10/30/18 08:26) Diarrhea olopatadine HCl [From Patanase] Adverse Reaction (Mild, Verified 10/30/18 08:26) dry nose paroxetine HCl [From Paxil] Adverse Reaction (Mild, Verified 10/30/18 08:26) GI upset, diarrhea potassium clavulanate [From Augmentin] Adverse Reaction (Mild, Verified 10/30/18 08:26) Nausea sulfamethoxazole [From Bactrim] Adverse Reaction (Mild, Verified 10/30/18 08:26) Other tramadol Adverse Reaction (Mild, Verified 10/30/18 08:26) Nausea trimethoprim [From Bactrim] Adverse Reaction (Mild, Verified 10/30/18 08:26) Other glycopyrrolate [From [place] Magnair Starter] Adverse Reaction (Verified 10/30/18 08:26) blood in sputum Home Medications: HOME MEDICATIONS Levothyroxine Sodium [Synthroid] 25 mcg PO DAILY 04/14/15 [Last Taken 10/22/18 09:00] Calcium Carbonate/Vitamin D3 [Calcium 500-Vit D3 400 Tablet] 1 tab PO DAILY 07/01/16 [Last Taken 10/22/18 09:00] Albuterol Sulfate/Ipratropium [Duoneb 2.5-0.5MG/3ML Soln] 3 ml INHALATION Q4H #1 nebu 07/19/16 [Last Taken 10/22/18 09:00] Omeprazole 40 mg PO PRN PRN 10/20/17 [Last Taken 10/22/18 09:00] losartan 25 mg tablet 25 mg PO DAILY #30 tab 07/24/18 [Last Taken 10/22/18 09:00] Fesoterodine Fumarate [Toviaz] 4 mg PO DAILY 08/21/18 [Last Taken Unknown] gabapentin 100 mg capsule 100 mg PO DAILY #30 cap 09/23/18 [Last Taken 10/22/18 09:00] Loratadine 10 mg PO DAILY PRN 10/14/18 [Last Taken 10/22/18 09:00] Azelastine HCl [Astepro Nasal [place]] 2 spray NS BID #1 inhaler 10/17/18 [Last Taken 10/22/18 09:00] Hydrochlorothiazide [Microzide] 12.5 mg PO DAILY #30 capsule 10/17/18 [Last Taken 10/22/18 09:00] Morphine Sulfate [Morphine Sulfate Conc. Oral Solution] 5 mg PO Q2H PRN #30 ml 10/23/18 [Last Taken Unknown] guaiFENesin [Mucinex] 600 mg PO BID tablet.sa 10/23/18 [Last Taken Unknown] predniSONE [Prednisone] 5 mg PO DAILY #90 tablet 10/23/18 [Last Taken Unknown] furosemide 40 mg tablet 40 mg PO DAILY PRN #30 tab 10/24/18 [Last Taken Unknown] potassium chloride ER 20 mEq tablet,extended release(part/cryst) 20 meq PO DAILY #30 tab 10/24/18 [Last Taken Unknown] alprazolam 0.25 mg tablet 0.25 mg PO HS #30 tab 10/29/18 [Last Taken Unknown] alprazolam 0.25 mg tablet 0.25 mg PO Q4H PRN #90 tab 10/29/18 [Last Taken Unknown] prednisone 10 mg tablet 10 mg PO DAILY 7 Days #7 tab 10/29/18 [Last Taken Unknown] - History of Present Illness Narrative: patient returns to ed with c/o dyspnea,recent admission for copd Severity: severe Treatment [employer]: paramedics, albuterol Initiating event: Reports: none Frequency of episodes: Reports: frequent episodes Modifying Factors - (Improves): Reports: nothing Modifying Factors (Worsens): Reports: activity Associated Symptoms-Dyspnea: Reports: lightheadedness, weakness Prior Treatment: Reports: recently seen, treated by physician, recently hospitalized Review of Systems - Review of Systems Constitutional: Present: See HPI, recent illness, weakness, fatigue, malaise EYE: Present: no symptoms reported ENT: Present: no symptoms reported Respiratory: Present: See HPI, shortness of breath, orthopnea, wheezing Cardiology: Present: no symptoms reported Gastrointestinal/Abdominal: Present: no symptoms reported Genitourinary: Present: no symptoms reported Musculoskeletal: Present: no symptoms reported Skin: Present: no symptoms reported Neurological: Present: no symptoms reported Endocrine: Present: no symptoms reported Hematologic/Lymphatic: Present: no symptoms reported Psych: Present: no symptoms reported All Other Systems: All systems neg except as marked Medical History (Last Reviewed 10/30/18 @ 08:26 by Li Núñez RN) Neuropathy (Acute) Raynauds syndrome (Chronic) Osteoporosis (Chronic) Hypothyroidism (acquired) (Chronic) GERD (gastroesophageal reflux disease) (Chronic) Essential hypertension (Chronic) Depression (Chronic) Chronic respiratory failure with hypoxia (Chronic) COPD (chronic obstructive pulmonary disease) (Chronic) Anxiety (Chronic) COPD (chronic obstructive pulmonary disease) (Chronic) Connective tissue disease Rectocele Surgical History: Surgical History (Last Reviewed 10/30/18 @ 08:26 by Li Núñez RN) History of abdominal hysterectomy Onset Date: ~1979 History of appendectomy Onset Date: ~1982 History of colonoscopy with polypectomy Onset Date: ~2004 History of dilatation and curettage Onset Date: ~1968 History of oophorectomy Onset Date: ~1979 History of tonsillectomy Onset Date: ~1956 History of tooth extraction Onset Date: ~2008 2002;2012 Dr. Nena acosta extracted 2002 bottom 2012 [place]. Family History: Family History (Last Reviewed 10/30/18 @ 08:26 by Li Núñez RN) Mother Hypertension Grandmother , maternal Diabetes Social History: Preferred Language German Smoking Status Former smoker Abuse History No History of abuse Psych History Hx of Anxiety,Hx of Depression Alcohol Use none Drug Use none (Last Updated 09/12/18 @ 09:13 by Victoria Schmidt DO) No Social History Section defined Physical Exam - Physical Exam General Appearance: Present: severe distress, anxious Head Exam: Present: normal inspection, no evidence of injury Eye Exam: Normal inspection: bilateral, PERRL: bilateral, EOMI: bilateral Ears, Nose, Throat: Present: normal ENT inspection, normal pharynx Neck: Present: normal inspection, nontender Respiratory: Present: respiratory distress, accessory muscle use, decreased breath sounds, expiration (prolonged), crackles, rales, rhonchi, wheezing Gastrointestinal/Abdominal: Present: normal bowel sounds, nontender, nondistended, soft, no organomegaly Back Exam: Present: normal inspection, normal range of motion, no CVA tenderness, no vertebral tenderness Extremity Exam: Present: normal inspection, non-tender, normal range of motion, no edema Neurological Exam: Present: alert, oriented, normal mood/affect, no motor/sensory deficits Skin Exam: Present: cyanosis Lymphatic Exam: Present: no adenopathy Progress - Date and Time Seen: Date and Time: 10/30/18 10:16 patient condition deteriating, discussion with patient and family reaffirms, wishes to remain dnr, patient refuses bipap or other intervention, case discussed with dr schmidt, who agrees to admission to comfort care - Results and Orders Patient's Lab Results:: I have reviewed the patient's lab results. - Vital Signs Patient's Vital Signs:: I have reviewed the patient's vital signs. Vital Signs: Vital Signs 10/30/18 08:21 10/30/18 08:33 10/30/18 08:45 Temperature 37.2 C 37.1 C Pulse Rate 119 H 117 H 110 H Respiratory Rate 25 H 30 H 28 H Blood Pressure 147/80 147/80 O2 Sat by Pulse Oximetry 98 90 L 10/30/18 08:54 10/30/18 09:02 10/30/18 09:06 Temperature 37 C 37.1 C 37.1 C Pulse Rate 111 H 112 H 115 H Respiratory Rate 25 H 27 H 29 H Blood Pressure 157/90 H 156/67 H 136/61 O2 Sat by Pulse Oximetry 91 L 80 L 75 L 10/30/18 09:08 10/30/18 09:10 Temperature Pulse Rate 115 H 114 H Respiratory Rate 29 H Blood Pressure 136/61 O2 Sat by Pulse Oximetry 77 L - EKG EKG: supraventricular tachycardia EKG read: Interp. by me - X-Ray X-Ray #1 X-Ray: chest Interpretation: Discd w/ radiologist - inflamatory - Progress/Reassessment Chief Complaint: Dyspnea Progress:: Unchanged - Transfer of Care Expected Disposition: Admit Plan - Plan Plan: to admit to comfort care Departure Clinical Impression: End stage COPD - Departure Disposition: Still a patient Condition: Serious Referrals: Victoria Schmidt DO [Primary Care Provider] -
[2018-10-30] MEDS ORDERED: MORPHINE SULFATE 10 MG/ML SYRG IV PRN (10:35)
[2018-10-30] MEDS ORDERED: ATROPINE SULFATE 150 DROP BTL SL PRN (10:35)
[2018-10-30] MEDS ORDERED: POLYVINYL ALCOHOL 150 DROP BTL EACHEYE PRN (10:35)
[2018-10-30] MEDS ORDERED: MORPHINE SULFATE 10 MG/0.5 ML SYRINGE PO PRN (10:35)
--- NOTE | 2018-10-30 12:20 | HP ---
Chief Complaint - Chief Complaint Date of Service: 10/30/18 Time of Service: 11:00 Chief Complaint: Actively dying, end-stage COPD History of Present Illness: The patient is unable to provide any information at the time of my exam as she is unresponsive and actively dying. She has end-stage COPD and has had multiple recent admissions and has been rapidly declining over the past few weeks but we were trying everything we could to keep her alive through the Holidays. She just went to SNF at [facility] yesterday, 10/29/2018 because she was unable to take care of herself at home even with home health care. This morning I was called by staff at [facility] who stated they were unable to get her oxygen sats higher than the low 80s despite being on 10L of oxygen so she was brought to the ED for further management. Medical History (Last Reviewed 10/30/18 @ 11:02 by Graciela Conner RN) Neuropathy (Acute) Raynauds syndrome (Chronic) Osteoporosis (Chronic) Hypothyroidism (acquired) (Chronic) GERD (gastroesophageal reflux disease) (Chronic) Essential hypertension (Chronic) Depression (Chronic) Chronic respiratory failure with hypoxia (Chronic) COPD (chronic obstructive pulmonary disease) (Chronic) Anxiety (Chronic) COPD (chronic obstructive pulmonary disease) (Chronic) Connective tissue disease Rectocele Surgical History: Surgical History (Last Reviewed 10/30/18 @ 11:02 by Graciela Conner RN) History of abdominal hysterectomy Onset Date: ~1979 History of appendectomy Onset Date: ~1982 History of colonoscopy with polypectomy Onset Date: ~2004 History of dilatation and curettage Onset Date: ~1968 History of oophorectomy Onset Date: ~1979 History of tonsillectomy Onset Date: ~1956 History of tooth extraction Onset Date: ~2008 2002;2012 Dr. Nena acosta extracted 2002 bottom 2012 in [place]. Family History: Family History (Last Reviewed 10/30/18 @ 11:02 by Graciela Conner RN) Mother Hypertension Grandmother , maternal Diabetes Social History: Patient Lives/Resources CC Utilized Occupation retired Preferred Language [place] Islander Do you have any muslim or Yes: Anabaptism cultural preference? Smoking Status Former smoker Have you smoked in the past 12 No months Do you dip or chew tobacco No Abuse History No History of abuse Psych History Hx of Anxiety,Hx of Depression Alcohol Use none Drug Use none (Last Updated 09/12/18 @ 09:13 by Victoria Penaloza DO) No Social History Section defined Review Of Systems (GEN) - Review of Systems Additional Comments: Unable to obtain secondary to patient's clinical condition Immunizations: IMMUNIZATION HX Immunizations Up to Date Yes History of Influenza Vaccine Yes Hx Pneumococcal Vaccination Yes Allergies/Adverse Reactions: Allergies Allergy/AdvReac Type Severity Reaction Status Date / Time telithromycin [From KETEK] Allergy Mild unknown Verified 10/30/18 10:49 amlodipine besylate AdvReac Mild does not Verified 10/30/18 10:49 [From Norvasc] work azithromycin [From Zithromax] AdvReac Mild gastritis Verified 10/30/18 10:49 cephalexin AdvReac Mild Diarrhea Verified 10/30/18 10:49 olopatadine HCl AdvReac Mild dry nose Verified 10/30/18 10:49 [From Patanase] paroxetine HCl [From Paxil] AdvReac Mild GI upset, Verified 10/30/18 10:49 diarrhea potassium clavulanate AdvReac Mild Nausea Verified 10/30/18 10:49 [From Augmentin] sulfamethoxazole AdvReac Mild Other Verified 10/30/18 10:49 [From Bactrim] tramadol AdvReac Mild Nausea Verified 10/30/18 10:49 trimethoprim [From Bactrim] AdvReac Mild Other Verified 10/30/18 10:49 glycopyrrolate AdvReac blood in Verified 10/30/18 10:49 [From Lonhala Magnair sputum Starter] Home Medications: HOME MEDICATIONS Levothyroxine Sodium [Synthroid] 25 mcg PO DAILY 04/14/15 [Last Taken 10/22/18 09:00] Calcium Carbonate/Vitamin D3 [Calcium 500-Vit D3 400 Tablet] 1 tab PO DAILY 07/01/16 [Last Taken 10/22/18 09:00] Albuterol Sulfate/Ipratropium [Duoneb 2.5-0.5MG/3ML Soln] 3 ml INHALATION Q4H #1 nebu 07/19/16 [Last Taken 10/22/18 09:00] Omeprazole 40 mg PO PRN PRN 10/20/17 [Last Taken 10/22/18 09:00] losartan 25 mg tablet 25 mg PO DAILY #30 tab 07/24/18 [Last Taken 10/22/18 09:00] Fesoterodine Fumarate [Toviaz] 4 mg PO DAILY 08/21/18 [Last Taken Unknown] gabapentin 100 mg capsule 100 mg PO DAILY #30 cap 09/23/18 [Last Taken 10/22/18 09:00] Loratadine 10 mg PO DAILY PRN 10/14/18 [Last Taken 10/22/18 09:00] Azelastine HCl [Astepro Nasal [place]] 2 spray NS BID #1 inhaler 10/17/18 [Last Taken 10/22/18 09:00] Hydrochlorothiazide [Microzide] 12.5 mg PO DAILY #30 capsule 10/17/18 [Last Taken 10/22/18 09:00] Morphine Sulfate [Morphine Sulfate Conc. Oral Solution] 5 mg PO Q2H PRN #30 ml 10/23/18 [Last Taken Unknown] guaiFENesin [Mucinex] 600 mg PO BID tablet.sa 10/23/18 [Last Taken Unknown] predniSONE [Prednisone] 5 mg PO DAILY #90 tablet 10/23/18 [Last Taken Unknown] furosemide 40 mg tablet 40 mg PO DAILY PRN #30 tab 10/24/18 [Last Taken Unknown] potassium chloride ER 20 mEq tablet,extended release(part/cryst) 20 meq PO DAILY #30 tab 10/24/18 [Last Taken Unknown] alprazolam 0.25 mg tablet 0.25 mg PO HS #30 tab 10/29/18 [Last Taken Unknown] alprazolam 0.25 mg tablet 0.25 mg PO Q4H PRN #90 tab 10/29/18 [Last Taken Unknown] prednisone 10 mg tablet 10 mg PO DAILY 7 Days #7 tab 10/29/18 [Last Taken Unknown] Exam - Exam Vital Signs: Vital Signs - Last Taken Temp 36.4 C 10/30/18 10:20 Pulse 122 H 10/30/18 10:20 Resp 28 H 10/30/18 10:20 BP 155/83 H 10/30/18 10:20 Pulse Ox 52 L 10/30/18 10:20 Constitutional: Present: Obtunded - unresponsive and actively dying Respiratory: Present: decreased breath sounds Cardiovascular/Chest: Present: tachycardia, diastolic murmur, systolic murmur Skin Exam: Present: mottled Diagnostic Studies: Abnormal Lab Results 12/10/30/18 10/30/18 Range/Units 08:55 08:55 08:55 WBC 13.2 H (4.0-10.5) K/mm3 RBC 4.01 L (4.2-5.4) M/mm3 MCH 31.2 H (27-31) pg MCHC 31.7 L (32-36) g/dl RDW 14.1 H (11.5-14.0) % Immature Gran % (Auto) 1.30 H (0.001-0.429) % Immature Gran # (Auto) 0.17 H (0.000-0.0310) K/mm3 Neutrophils % 79.1 H (42-75.0) % Lymphocytes % 7.5 L (20-51) % Monocytes % 9.2 H (0.0-9) % Neutrophils # 10.5 H (1.3-6.0) K/mm3 Lymphocytes # 0.99 L (1.5-3.5) k/mm3 Monocytes # 1.2 H (0.0-1.0) k/mm3 Potassium 3.1 L (3.4-4.6) mmol/L Chloride 93 L (97-106) mmol/L Carbon Dioxide 41.4 H (24-32.6) mmol/L Anion Gap 5.7 L (6.8-13.8) mmol/L BUN/Creatinine Ratio 28.4 H (9.0-21.6) Random Glucose 126 H (70-110) mg/dL ALT 17 L (19-67) U/L B-Natriuretic Peptide 1194 H (5-325) pg/mL Laboratory Results WBC 13.2 K/mm3 (4.0-10.5) H 10/30/18 08:55 RBC 4.01 M/mm3 (4.2-5.4) L 10/30/18 08:55 Hgb 12.5 gm/dL (12.5-16.0) 10/30/18 08:55 Hct 39.4 % (37.0-47.0) 10/30/18 08:55 MCV 98.3 fl (78-100) 10/30/18 08:55 MCH 31.2 pg (27-31) H 10/30/18 08:55 MCHC 31.7 g/dl (32-36) L 10/30/18 08:55 RDW 14.1 % (11.5-14.0) H 10/30/18 08:55 Plt Count 314 K/mm3 (150-450) 10/30/18 08:55 MPV 8.5 fl (8-12.5) 10/30/18 08:55 Immature Gran % (Auto) 1.30 % (0.001-0.429) H 10/30/18 08:55 Immature Gran # (Auto) 0.17 K/mm3 (0.000-0.0310) H 10/30/18 08:55 Neutrophils % 79.1 % (42-75.0) H 10/30/18 08:55 Lymphocytes % 7.5 % (20-51) L 10/30/18 08:55 Monocytes % 9.2 % (0.0-9) H 10/30/18 08:55 Eosinophils % 2.4 % (0.0-3.0) 10/30/18 08:55 Basophils % 0.5 % (0.0-1.0) 10/30/18 08:55 Nucleated RBC % 0.0 k/mm3 (0-1) 10/30/18 08:55 Neutrophils # 10.5 K/mm3 (1.3-6.0) H 10/30/18 08:55 Lymphocytes # 0.99 k/mm3 (1.5-3.5) L 10/30/18 08:55 Monocytes # 1.2 k/mm3 (0.0-1.0) H 10/30/18 08:55 Eosinophils # 0.3 k/mm3 (0.0-0.7) 10/30/18 08:55 Absolute Basophils 0.1 k/mm3 (0.0-0.1) 10/30/18 08:55 Sodium 137 mmol/L (132-142) 10/30/18 08:55 Plasma Sodium 137 mmol/L (130-142) 10/30/18 08:55 Potassium 3.1 mmol/L (3.4-4.6) L 10/30/18 08:55 Chloride 93 mmol/L (97-106) L 10/30/18 08:55 Carbon Dioxide 41.4 mmol/L (24-32.6) H 10/30/18 08:55 Anion Gap 5.7 mmol/L (6.8-13.8) L 10/30/18 08:55 BUN 23 mg/dL (3-23) 10/30/18 08:55 Creatinine 0.81 mg/dL (0.4-1.4) 10/30/18 08:55 Est GFR (Non-Af Amer) 74 mL/min (60-130) 10/30/18 08:55 BUN/Creatinine Ratio 28.4 (9.0-21.6) H 10/30/18 08:55 Random Glucose 126 mg/dL (70-110) H 10/30/18 08:55 Calcium 9.9 mg/dL (7.9-10.9) 10/30/18 08:55 Calcium Adj for Albumin 10.1 mg/dL (8.4-10.2) 10/30/18 08:55 Total Bilirubin 0.4 mg/dL (0.0-1.1) 10/30/18 08:55 AST 25 U/L (0-48) 10/30/18 08:55 ALT 17 U/L (19-67) L 10/30/18 08:55 Alkaline Phosphatase 56 U/L (50-170) 10/30/18 08:55 Troponin I Less than 0.017 ng/mL (0.00-0.10) 10/30/18 08:55 B-Natriuretic Peptide 1194 pg/mL (5-325) H 10/30/18 08:55 Total Protein 7.5 gm/dL (6.2-8.2) 10/30/18 08:55 Albumin 3.4 gm/dl (3.4-5.0) 10/30/18 08:55 Assessment/Plan - Narrative Narrative: The patient was admitted to our butterfly room. She is actively dying and I discussed with family that she will likely pass within the next few minutes to hours. Her oxygen saturation currently is 52% and she is unresponsive. However, she appears comfortable and does not show any signs of distress. We will admit the patient for comfort measures until she expires. - Assessment/Plan (1) Need for comfort care Problem: Acute (2) Caring for the dying Problem: Acute (3) Dying/ measures Problem: Acute (4) Encounter for dying care Problem: Acute (5) End stage COPD Problem: Chronic
--- NOTE | 2018-10-30 12:20 | DS ---
Discharge Summary - Provider Primary Care Provider: Victoria Penaloza Admitting Clinician: Victoria Penaloza Attending Physician on Admission: Victoria Penaloza - Date and Time Date of : 10/30/18 Time of : 11:46 - Diagnosis/Cause of (1) Need for comfort care Problems: Acute (2) Caring for the dying Problems: Acute (3) Dying/ measures Problems: Acute (4) Encounter for dying care Problems: Acute (5) End stage COPD Problems: Chronic - Summary Details (narrative): ADMISSION DATE: 10/30/2018 DATE AND TIME OF : 10/30/2018 @ 1146 HOSPITAL COURSE: The patient has end-stage COPD and has had multiple recent admissions and has been rapidly declining over the past few weeks but we were trying everything we could to keep her alive through the holidays. However, despite our best efforts, she shortly after admission. She was admitted to our butterfly room and was surrounded by family and was comfortable and without any signs of distress prior to passing away. Procedures Performed: none - Additional Data Confirmation of as documented by pronouncing clinician: no pulse, no respirations Family: at bedside Practitioner(Attending/PCP) notified: Yes Attending physician: Victoria Penaloza Was code activated: No Autopsy requested: No Press Tender Long Goods notified: No Organ Bank notified: Yes Hospice patient: No
[2018-10-31 00:40] VITALS: BP 0/0
== END 2018-10-30 11:46 | disposition expired | DRG 951 ==
LOC: ER 08:16 → MS 10:13
PROVIDERS: ADMIT Internal Medicine; ATTEND Internal Medicine
CPT/HCPCS: 36415; 36600; 71010; 71045; 80053; 82803; 83519; 83880; 84484; 85025; 93005; 94640; 94664; 94760; 96374; 99285